=== PATIENT | female | born 1960 | race Caucasian/White ===

== ENCOUNTER 2017-01-02 15:40 | Emergency (ER) | payer OTHER ==
--- NOTE | 2017-01-02 16:02 | ED ---
General Adult HPI - General Chief complaint: Psychiatric Symptoms Stated complaint: DEPRESSION, MENTAL HEALTH Time Seen by Provider: 01/02/17 15:49 Source: patient, RN notes reviewed Mode of arrival: EMS Limitations: no limitations - History of Present Illness Initial comments: Patient is a 56-year-old female who presents emergency room today by EMS, the chief complaint of wanting to be admitted to 3 W. She states that she is been not feeling well. Admits to chronic cough congestion. Admits to chronic back pain. States no new symptoms. States just not feeling well like to be admitted to 3 W. Denies any suicidal or homicidal thoughts or plans. Denies any auditory or visual hallucinations. Denies any complaints or symptoms. Patient denies any recent fever, chills, shortness of breath, chest pain, abdominal pain, nausea or vomiting, numbness or tingling, dysuria or hematuria, constipation or diarrhea, headaches or visual changes, or any other complaints. - Related Data Home Medications Medication Instructions Recorded Confirmed Atenolol [Tenormin] 50 mg PO DAILY 05/07/16 01/02/17 Naproxen [Naproxen] 500 mg PO Q12H 05/07/16 01/02/17 diphenhydrAMINE HCL [Banophen] 50 mg PO HS 05/07/16 01/02/17 fluPHENAZine DECANOATE [Prolixin 25 mg IM Q7D 05/07/16 01/02/17 Decanoate] Albuterol Sulfate [Proair Hfa] 1 - 2 puff INHALATION RT-Q6H PRN 01/02/17 Loratadine [Claritin] 10 mg PO DAILY 01/02/17 01/02/17 Losartan [Cozaar] 50 mg PO DAILY 01/02/17 01/02/17 Allergies Allergy/AdvReac Type Severity Reaction Status Date / Time haloperidol [From Haldol] Allergy Anaphylaxis Verified 01/02/17 16:10 haloperidol lactate Allergy Anaphylaxis Verified 01/02/17 16:10 [From Haldol] iodine Allergy Anaphylaxis Verified 01/02/17 16:10 Review of Systems ROS Statement: Those systems with pertinent positive or pertinent negative responses have been documented in the HPI. ROS Other: All systems not noted in ROS Statement are negative. Past Medical History Past Medical History: Asthma, Fibromyalgia, Hypertension, Seizure Disorder, Thyroid Disorder Additional Past Medical History / Comment(s): Chronic back pain, angina, hypothyroidism, breast cancer, cervical cancer History of Any Multi-Drug Resistant Organisms: None Reported Past Surgical History: Appendectomy, Orthopedic Surgery Additional Past Surgical History / Comment(s): exp lap, liver transplant in 1987 , lumbar fusion in 1991, right breast lumpectomy Past Psychological History: Anxiety, Bipolar, Depression, Panic Disorder Smoking Status: Current every day smoker Past Alcohol Use History: Occasional Additional Past Alcohol Use History / Comment(s): Patient is a smoker of 8 cigarettes per day for the past 10-12 years. She denies any marijuana or street drug use. She states she drinks a couple beers on the weekends. Past Drug Use History: None Reported - Past Family History Father Family Medical History: Myocardial Infarction ([place]) Additional Family Medical History / Comment(s): Father in his 90s from a myocardial infarction. Mother Additional Family Medical History / Comment(s): Mother is alive at age 86 and patient denies any major medical problems. Brother(s) Additional Family Medical History / Comment(s): Patient has 5 brothers and 1 sister with no major medical problems. Patient does not have any children. General Exam - General Exam Comments Initial Comments: General: The patient is awake and alert, in no distress, and does not appear acutely ill. Eye: Pupils are equal, round and reactive to light, extra-ocular movements are intact. No nystagmus. There is normal conjunctiva bilaterally. No signs of icterus. Ears, nose, mouth and throat: There are moist mucous membranes and no oral lesions. Neck: The neck is supple, there is no tenderness or JVD. Cardiovascular: There is a regular rate and rhythm. No murmur, rub or gallop is appreciated. Respiratory: Lungs are clear to auscultation, respirations are non-labored, breath sounds are equal. No wheezes, stridor, rales, or rhonchi. Musculoskeletal: Normal ROM, no tenderness. Strength 5/5. Sensation intact. Pulses equal bilaterally 2+. Neurological: A&O x 3. CN II-XII intact, There are no obvious motor or sensory deficits. Coordination appears grossly intact. Speech is normal. Skin: Skin is warm and dry and no rashes or lesions are noted. Psychiatric: Cooperative, appropriate mood & affect, normal judgment. Limitations: no limitations Course Vital Signs 01/02/17 15:46 Temperature 97.3 F L Pulse Rate 72 Respiratory 18 Rate Blood Pressure 159/82 O2 Sat by Pulse 100 Oximetry Medical Decision Making - Medical Decision Making Patient seen here in the emergency room by mental health. Patient denies any suicidal or homicidal thoughts or plans. Patient's admits that she lost her pain medicine this morning. Patient's strep screen is negative. Patient will be discharged home. Advised follow-up family doctor. - Lab Data Lab Results 01/02/17 Range/Units 16:17 Urine Opiates Screen Not Detected (NotDetected) Ur Oxycodone Screen Not Detected (NotDetected) Urine Methadone Screen Not Detected (NotDetected) Ur Propoxyphene Screen Not Detected (NotDetected) Ur Barbiturates Screen Not Detected (NotDetected) U Tricyclic Antidepress Not Detected (NotDetected) Ur Phencyclidine Scrn Not Detected (NotDetected) Ur Amphetamines Screen Not Detected (NotDetected) U Methamphetamines Scrn Not Detected (NotDetected) U Benzodiazepines Scrn Not Detected (NotDetected) Urine Cocaine Screen Not Detected (NotDetected) U Marijuana (THC) Screen Not Detected (NotDetected) Disposition Clinical Impression: Chronic pain Disposition: HOME SELF-CARE Condition: Good Instructions: Chronic Pain (ED) Additional Instructions: Please follow-up with family doctor in the next 2 days of symptoms have not improved. Please return to emergency room if the symptoms increase or worsen or for any other concerns. Time of Disposition: 18:04
[2017-01-02 16:18] VITALS: RESP 18
[2017-01-02] MEDS ORDERED: ACETAMINOPHEN TAB 500 MG TAB PO STA (16:39)
[2017-01-02 18:09] VITALS: BP 158/64; PULSE 77; TEMP 97.9
== END 2017-01-02 18:09 | disposition home or self-care (01) ==
LOC: EC 15:40
DX: G89.29 Other chronic pain (principal); M54.9 Dorsalgia, unspecified; R05 Cough; R09.89 Other specified symptoms and signs involving the circulatory and respiratory systems; I10 Essential (primary) hypertension; M79.7 Fibromyalgia; J45.909 Unspecified asthma, uncomplicated; F31.9 Bipolar disorder, unspecified; F41.0 Panic disorder [episodic paroxysmal anxiety]; F17.210 Nicotine dependence, cigarettes, uncomplicated; Z79.1 Long term (current) use of non-steroidal anti-inflammatories (NSAID); Z79.899 Other long term (current) drug therapy; Z88.8 Allergy status to other drugs, medicaments and biological substances; Z91.041 Radiographic dye allergy status
CPT/HCPCS: 80306; 99284

== ENCOUNTER 2018-02-20 01:23 | Emergency (ER) | payer OTHER ==
--- NOTE | 2018-02-20 01:45 | ED ---
General Adult HPI - General Chief complaint: Chest Pain Stated complaint: Chest Pain Time Seen by Provider: 02/20/18 01:27 Source: patient Mode of arrival: EMS Limitations: no limitations - History of Present Illness Initial comments: This patient is a 57-year-old woman who presents to be evaluated for upper abdominal symptoms that is been going on for 7 days. The patient states that she feels gassy, particularly after eating. She states it feels like a bubbling in the upper abdomen going across the upper quadrants and also to the epigastric area. It is of bloating feeling as well. She has had some intermittent nausea. Patient denies any chest symptoms. No dyspnea, diaphoresis, palpitations or lightheadedness. Onset/Timin -: days(s) Location: abdomen Radiation: non-radiation Quality: other (Bubbling) Consistency: intermittent Improves with: none Worsens with: eating Associated Symptoms: denies other symptoms Treatments Prior to Arrival: none - Related Data Home Medications Medication Instructions Recorded Confirmed Atenolol [Tenormin] 50 mg PO DAILY 05/07/16 02/20/18 Naproxen [Naproxen] 500 mg PO Q12H 05/07/16 02/20/18 diphenhydrAMINE HCL [Banophen] 50 mg PO HS 05/07/16 02/20/18 fluPHENAZine DECANOATE [Prolixin 25 mg IM Q7D 05/07/16 02/20/18 Decanoate] Albuterol Sulfate [Proair Hfa] 1 - 2 puff INHALATION RT-Q6H PRN 01/02/17 Loratadine [Claritin] 10 mg PO DAILY 01/02/17 02/20/18 Losartan [Cozaar] 50 mg PO DAILY 01/02/17 02/20/18 Previous Rx's Medication Instructions Recorded Famotidine [Pepcid] 20 mg PO BID #14 tablet 02/20/18 Allergies Allergy/AdvReac Type Severity Reaction Status Date / Time haloperidol [From Haldol] Allergy Anaphylaxis Verified 01/02/17 16:10 haloperidol lactate Allergy Anaphylaxis Verified 01/02/17 16:10 [From Haldol] iodine Allergy Anaphylaxis Verified 01/02/17 16:10 Review of Systems ROS Statement: Those systems with pertinent positive or pertinent negative responses have been documented in the HPI. ROS Other: All systems not noted in ROS Statement are negative. Constitutional: Denies: fever, chills, weakness Respiratory: Denies: cough, dyspnea Cardiovascular: Denies: chest pain, palpitations, dyspnea on exertion, orthopnea , syncope Gastrointestinal: Reports: abdominal pain, nausea. 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 History of Any Multi-Drug Resistant Organisms: None Reported Past Surgical History: Appendectomy, Orthopedic Surgery Additional Past Surgical History / Comment(s): exp lap, liver transplant in 1987 , lumbar fusion in 1991, right breast lumpectomy Past Psychological History: Bipolar, Panic Disorder Smoking Status: Current some day smoker - Past Family History Father Family Medical History: Myocardial Infarction ([place]) Additional Family Medical History / Comment(s): Father in his 90s from a myocardial infarction. Mother Additional Family Medical History / Comment(s): Mother is alive at age 86 and patient denies any major medical problems. Brother(s) Additional Family Medical History / Comment(s): Patient has 5 brothers and 1 sister with no major medical problems. Patient does not have any children. General Exam Limitations: no limitations General appearance: alert, in no apparent distress Head exam: Present: atraumatic, normocephalic Eye exam: Present: normal appearance. Absent: scleral icterus, conjunctival injection ENT exam: Present: normal oropharynx Neck exam: Present: normal inspection, full ROM Respiratory exam: Present: normal lung sounds bilaterally. Absent: respiratory distress, wheezes, rales, rhonchi, stridor Cardiovascular Exam: Present: regular rate, normal rhythm, normal heart sounds. Absent: systolic murmur, diastolic murmur, rubs, gallop GI/Abdominal exam: Present: soft, normal bowel sounds. Absent: distended, tenderness, guarding, rebound, rigid, pulsatile mass, hernia Extremities exam: Present: normal inspection, normal capillary refill. Absent: pedal edema, calf tenderness Back exam: Present: normal inspection. Absent: CVA tenderness (R), CVA tenderness (L) Neurological exam: Present: alert Skin exam: Present: warm, dry, intact, normal color. Absent: rash Course Vital Signs 02/20/18 02/20/18 02/20/18 01:27 02:09 02:14 Temperature 97.0 F L 97.4 F L Pulse Rate 76 74 Respiratory 18 18 18 Rate Blood Pressure 113/70 112/74 O2 Sat by Pulse 100 98 Oximetry 02/20/18 06:29 Temperature 98.3 F Pulse Rate 84 Respiratory 16 Rate Blood Pressure 146/76 O2 Sat by Pulse 96 Oximetry EKG Findings - EKG Comments: EKG Findings:: Low-voltage QRS complex - EKG Results: EKG: interpreted by MACHELLE, sinus rhythm (Rate 80 bpm), normal axis, normal ST/T Medical Decision Making - Medical Decision Making Discussed stay results and further follow-up with patient including possibility of requiring endoscopy. Return parameters discussed. - Lab Data Result diagrams: 02/20/18 03:25 02/20/18 03:25 Lab Results 02/20/18 02/20/18 02/20/18 Range/Units 03:25 03:25 03:25 WBC 6.1 (3.8-10.6) k/uL RBC 3.98 (3.80-5.40) m/uL Hgb 11.6 (11.4-16.0) gm/dL Hct 33.8 L (34.0-46.0) % MCV 84.9 (80.0-100.0) fL MCH 29.1 (25.0-35.0) pg MCHC 34.2 (31.0-37.0) g/dL RDW 12.7 (11.5-15.5) % Plt Count 226 (150-450) k/uL Neutrophils % 46 % Lymphocytes % 40 % Monocytes % 10 % Eosinophils % 1 % Basophils % 1 % Neutrophils # 2.8 (1.3-7.7) k/uL Lymphocytes # 2.5 (1.0-4.8) k/uL Monocytes # 0.6 (0-1.0) k/uL Eosinophils # 0.1 (0-0.7) k/uL Basophils # 0.0 (0-0.2) k/uL Sodium 137 (137-145) mmol/L Potassium 4.4 (3.5-5.1) mmol/L Chloride 98 (98-107) mmol/L Carbon Dioxide 23 (22-30) mmol/L Anion Gap 16 mmol/L BUN 7 (7-17) mg/dL Creatinine 0.60 (0.52-1.04) mg/dL Est GFR (CKD-EPI)AfAm >90 (>60 ml/min/1.73 sqM) Est GFR (CKD-EPI)NonAf >90 (>60 ml/min/1.73 sqM) Glucose 94 (74-99) mg/dL Calcium 9.8 (8.4-10.2) mg/dL Total Bilirubin 0.2 (0.2-1.3) mg/dL AST 16 (14-36) U/L ALT 22 (9-52) U/L Alkaline Phosphatase 76 (38-126) U/L Troponin I <0.012 (0.000-0.034) ng/mL Total Protein 6.7 (6.3-8.2) g/dL Albumin 4.3 (3.5-5.0) g/dL Disposition Clinical Impression: Gastritis Disposition: HOME SELF-CARE Condition: Good Instructions: Gastritis (ED) Prescriptions: Famotidine [Pepcid] 20 mg PO BID #14 tablet Is patient prescribed a controlled substance at d/c from ED?: No Referrals: Ilda Naranjo MD [Primary Care Provider] - 1-2 days
--- NOTE | 2018-02-20 02:42 | XR ---
EXAMINATION TYPE: XR chest 1V portable DATE OF EXAM: 02/20/2018 COMPARISON: 05/07/2016 HISTORY: Chest pain TECHNIQUE: Single frontal view of the chest is obtained. FINDINGS: Single view of the chest portable technique shows no heart failure nor confluent pneumonic infiltrate. There are small calcified granulomata in the lower lobes. There are chest leads. Costoph renic angles are clear. There is spurring in the thoracic spine. Heart size is normal. IMPRESSION: No active cardiopulmonary disease. No change.
[2018-02-20 03:44] LABS: Basophils % (A) 1 %; Eosinophils # (A) 0.1 k/uL (0-0.7); Eosinophils % (A) 1 %; HCT 33.8 % (34.0-46.0); HGB 11.6 gm/dL (11.4-16.0); Lymphocytes # (A) 2.5 k/uL (1.0-4.8); Lymphocytes % (A) 40 %; MCH 29.1 pg (25.0-35.0); MCHC 34.2 g/dL (31.0-37.0); MCV 84.9 fL (80.0-100.0); Monocytes # (A) 0.6 k/uL (0-1.0); Monocytes % (A) 10 %; Neutrophils # (A) 2.8 k/uL (1.3-7.7); Neutrophils % (A) 46 %; Platelet Count 226 k/uL (150-450); RBC 3.98 m/uL (3.80-5.40); RDW 12.7 % (11.5-15.5); WBC 6.1 k/uL (3.8-10.6)
[2018-02-20 03:58] LABS: ALT 22 U/L (9-52); AST 16 U/L (14-36); Albumin 4.3 g/dL (3.5-5.0); Alkaline Phosphatase 76 U/L (38-126); Anion Gap 16 mmol/L; Blood Urea Nitrogen 7 mg/dL (7-17); Calcium 9.8 mg/dL (8.4-10.2); Carbon Dioxide 23 mmol/L (22-30); Chloride 98 mmol/L (98-107); Glucose 94 mg/dL (74-99); Potassium 4.4 mmol/L (3.5-5.1); Sodium 137 mmol/L (137-145); Total Bilirubin 0.2 mg/dL (0.2-1.3); Total Protein 6.7 g/dL (6.3-8.2)
[2018-02-20 06:31] VITALS: BP 146/76; PULSE 84; RESP 16; TEMP 98.3
== END 2018-02-20 06:31 | disposition home or self-care (01) ==
LOC: EC 01:23
DX: K29.70 Gastritis, unspecified, without bleeding (principal); R07.9 Chest pain, unspecified; M79.7 Fibromyalgia; I10 Essential (primary) hypertension; F17.200 Nicotine dependence, unspecified, uncomplicated; Z85.3 Personal history of malignant neoplasm of breast; Z85.41 Personal history of malignant neoplasm of cervix uteri; Z94.4 Liver transplant status; Z79.1 Long term (current) use of non-steroidal anti-inflammatories (NSAID); Z79.899 Other long term (current) drug therapy; Z88.8 Allergy status to other drugs, medicaments and biological substances; Z91.048 Other nonmedicinal substance allergy status
CPT/HCPCS: 36415; 71045; 80053; 84484; 85025; 93005; 99285

== ENCOUNTER → 2018-02-28 | Outpatient (CLI) | payer OTHER ==
[2018-02-28 16:48] LABS: ALT 28 U/L (9-52); AST 27 U/L (14-36); Albumin 4.5 g/dL (3.5-5.0); Alkaline Phosphatase 82 U/L (38-126); Anion Gap 14 mmol/L; Blood Urea Nitrogen 5 mg/dL (7-17); Calcium 10.3 mg/dL (8.4-10.2); Carbon Dioxide 24 mmol/L (22-30); Chloride 94 mmol/L (98-107); Glucose 91 mg/dL (74-99); Potassium 4.3 mmol/L (3.5-5.1); Sodium 132 mmol/L (137-145); Total Bilirubin 0.3 mg/dL (0.2-1.3); Total Protein 6.9 g/dL (6.3-8.2)
== END ==
LOC: LABWHC1 16:10
PROVIDERS: ATTEND Physician Assistant Medical
DX: E87.1 Hypo-osmolality and hyponatremia (principal)
CPT/HCPCS: 36415; 80053

== ENCOUNTER 2018-04-22 02:24 | Emergency (ER) | payer OTHER ==
[2018-04-22] MEDS ORDERED: SODIUM CHLORIDE 0.9% 1,000 ML IV STA (02:40)
[2018-04-22] MEDS ORDERED: SODIUM CHLORIDE 0.9% 500 ML IV STA (02:40)
--- NOTE | 2018-04-22 02:41 | ED ---
General Adult HPI - General Chief complaint: Fall Stated complaint: Syncope Time Seen by Provider: 04/22/18 02:39 Source: patient, EMS, RN notes reviewed, old records reviewed Mode of arrival: EMS Limitations: physical limitation - History of Present Illness Initial comments: This is a 57-year-old female the ER for evaluation. Patient resents ER today for evaluation of syncope versus near syncope, weakness and fall. Patient does complain of chest pain and abdominal pain. Neck pain and headache. Patient has medical history of mental health, surgical history as well as high blood pressure. Patient denies any recent trauma prior. No recent change in medications. Currently denying any shortness of breath. No prior history of syncopal event - Related Data Home Medications Medication Instructions Recorded Confirmed Loratadine [Claritin] 10 mg PO DAILY 01/02/17 04/22/18 Acetaminophen Tab [Tylenol Tab] 1,000 mg PO TID 04/22/18 04/22/18 Cholecalciferol [Vitamin D3] 5,000 unit PO DAILY 04/22/18 04/22/18 Ferrous Sulfate [Feosol] 325 mg PO DAILY 04/22/18 04/22/18 Fluticasone Nasal Delevan [Flonase 2 spr EA NOSTRIL DAILY 04/22/18 04/22/18 Nasal Delevan] Gabapentin [Neurontin] 400 mg PO TID 04/22/18 04/22/18 Ibuprofen [Motrin] 600 mg PO BID 04/22/18 04/22/18 Losartan Potassium [Cozaar] 100 mg PO DAILY 04/22/18 04/22/18 Magnesium Oxide [Mag-Ox] 400 mg PO DAILY 04/22/18 04/22/18 Metoprolol Tartrate [Lopressor] 50 mg PO BID 04/22/18 04/22/18 cloZAPine [Clozaril] 100 mg PO HS 04/22/18 04/22/18 fluPHENAZine DECANOATE [Prolixin 50 mg IM [id number] 04/22/18 04/22/18 Decanoate] fluvoxaMINE [Luvox] 50 mg PO HS 04/22/18 04/22/18 hydrOXYzine PAMOATE [Vistaril] 50 mg PO TID 04/22/18 04/22/18 traMADol HCL [Ultram] 50 mg PO BID PRN 04/22/18 04/22/18 Allergies Allergy/AdvReac Type Severity Reaction Status Date / Time haloperidol [From Haldol] Allergy Anaphylaxis Verified 04/22/18 08:43 haloperidol lactate Allergy Anaphylaxis Verified 04/22/18 08:43 [From Haldol] iodine Allergy Anaphylaxis Verified 04/22/18 08:43 Review of Systems ROS Statement: Those systems with pertinent positive or pertinent negative responses have been documented in the HPI. ROS Other: All systems not noted in ROS Statement are negative. 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 History of Any Multi-Drug Resistant Organisms: None Reported Past Surgical History: Appendectomy, Orthopedic Surgery Additional Past Surgical History / Comment(s): exp lap, liver transplant in 1987 , lumbar fusion in 1991, right breast lumpectomy Past Psychological History: Anxiety, Bipolar, Depression, Panic Disorder Smoking Status: Current every day smoker Past Alcohol Use History: Rare Past Drug Use History: None Reported - Past Family History Father Family Medical History: Myocardial Infarction ([place]) Additional Family Medical History / Comment(s): Father in his 90s from a myocardial infarction. Mother Additional Family Medical History / Comment(s): Mother is alive at age 86 and patient denies any major medical problems. Brother(s) Additional Family Medical History / Comment(s): Patient has 5 brothers and 1 sister with no major medical problems. Patient does not have any children. General Exam Limitations: physical limitation General appearance: alert, in no apparent distress Head exam: Present: atraumatic, normocephalic, normal inspection Eye exam: Present: normal appearance, PERRL, EOMI. Absent: scleral icterus, conjunctival injection, periorbital swelling ENT exam: Present: normal exam, mucous membranes moist Neck exam: Present: normal inspection. Absent: tenderness, meningismus, lymphadenopathy Respiratory exam: Present: normal lung sounds bilaterally. Absent: respiratory distress, wheezes, rales, rhonchi, stridor Cardiovascular Exam: Present: regular rate, normal rhythm, normal heart sounds. Absent: systolic murmur, diastolic murmur, rubs, gallop, clicks GI/Abdominal exam: Present: soft, normal bowel sounds. Absent: distended, tenderness, guarding, rebound, rigid Extremities exam: Present: normal inspection, full ROM, normal capillary refill. Absent: tenderness, pedal edema, joint swelling, calf tenderness Back exam: Present: normal inspection Neurological exam: Present: alert, oriented X3, CN II-XII intact Psychiatric exam: Present: normal affect, normal mood Skin exam: Present: warm, dry, intact, normal color. Absent: rash Course Vital Signs 04/22/18 04/22/18 04/22/18 02:27 03:33 04:46 Temperature 96.7 F L Pulse Rate 93 88 88 Respiratory 19 17 17 Rate Blood Pressure 128/88 127/89 125/86 O2 Sat by Pulse 100 100 98 Oximetry 04/22/18 04/22/18 06:28 07:14 Temperature 97.7 F Pulse Rate 93 91 Respiratory 18 20 Rate Blood Pressure 123/87 123/87 O2 Sat by Pulse 100 97 Oximetry - Reevaluation(s) Reevaluation #1: 04/22/18 06:08 Medical record is reviewed Reevaluation #2: 04/22/18 06:08 Patient continuing continuing after pain medication EKG Findings - EKG Comments: EKG Findings:: EKG shows normal sinus rhythm rate of 92, MT 180, QRS 76, QTc 460 Medical Decision Making - Medical Decision Making 57 female the ER for evaluation, positive fall, near syncopal event. No significant cause found. Patient can be discharged home - Lab Data Result diagrams: 04/22/18 04:16 04/22/18 04:16 Lab Results 04/22/18 04/22/18 04/22/18 Range/Units 04:16 04:16 04:16 WBC 6.1 (3.8-10.6) k/uL RBC 3.93 (3.80-5.40) m/uL Hgb 11.6 (11.4-16.0) gm/dL Hct 35.1 (34.0-46.0) % MCV 89.4 (80.0-100.0) fL MCH 29.4 (25.0-35.0) pg MCHC 32.9 (31.0-37.0) g/dL RDW 12.4 (11.5-15.5) % Plt Count 183 (150-450) k/uL Neutrophils % 56 % Lymphocytes % 31 % Monocytes % 9 % Eosinophils % 0 % Basophils % 1 % Neutrophils # 3.4 (1.3-7.7) k/uL Lymphocytes # 1.9 (1.0-4.8) k/uL Monocytes # 0.6 (0-1.0) k/uL Eosinophils # 0.0 (0-0.7) k/uL Basophils # 0.0 (0-0.2) k/uL PT 10.0 (9.0-12.0) sec INR 1.0 (<1.2) APTT 23.6 (22.0-30.0) sec Sodium 131 L (137-145) mmol/L Potassium 3.8 (3.5-5.1) mmol/L Chloride 96 L (98-107) mmol/L Carbon Dioxide 21 L (22-30) mmol/L Anion Gap 14 mmol/L BUN 3 L (7-17) mg/dL Creatinine 0.50 L (0.52-1.04) mg/dL Est GFR (CKD-EPI)AfAm >90 (>60 ml/min/1.73 sqM) Est GFR (CKD-EPI)NonAf >90 (>60 ml/min/1.73 sqM) Glucose 89 (74-99) mg/dL Calcium 9.2 (8.4-10.2) mg/dL Phosphorus 3.3 (2.5-4.5) mg/dL Magnesium 1.5 L (1.6-2.3) mg/dL Total Bilirubin <0.1 L (0.2-1.3) mg/dL AST 17 (14-36) U/L ALT 35 (9-52) U/L Alkaline Phosphatase 76 (38-126) U/L Total Creatine Kinase (30-135) U/L CK-MB (CK-2) (0.0-2.4) ng/mL CK-MB (CK-2) Rel Index Troponin I (0.000-0.034) ng/mL Total Protein 6.6 (6.3-8.2) g/dL Albumin 4.3 (3.5-5.0) g/dL TSH 2.760 (0.465-4.680) mIU/L 04/22/18 Range/Units 04:16 WBC (3.8-10.6) k/uL RBC (3.80-5.40) m/uL Hgb (11.4-16.0) gm/dL Hct (34.0-46.0) % MCV (80.0-100.0) fL MCH (25.0-35.0) pg MCHC (31.0-37.0) g/dL RDW (11.5-15.5) % Plt Count (150-450) k/uL Neutrophils % % Lymphocytes % % Monocytes % % Eosinophils % % Basophils % % Neutrophils # (1.3-7.7) k/uL Lymphocytes # (1.0-4.8) k/uL Monocytes # (0-1.0) k/uL Eosinophils # (0-0.7) k/uL Basophils # (0-0.2) k/uL PT (9.0-12.0) sec INR (<1.2) APTT (22.0-30.0) sec Sodium (137-145) mmol/L Potassium (3.5-5.1) mmol/L Chloride (98-107) mmol/L Carbon Dioxide (22-30) mmol/L Anion Gap mmol/L BUN (7-17) mg/dL Creatinine (0.52-1.04) mg/dL Est GFR (CKD-EPI)AfAm (>60 ml/min/1.73 sqM) Est GFR (CKD-EPI)NonAf (>60 ml/min/1.73 sqM) Glucose (74-99) mg/dL Calcium (8.4-10.2) mg/dL Phosphorus (2.5-4.5) mg/dL Magnesium (1.6-2.3) mg/dL Total Bilirubin (0.2-1.3) mg/dL AST (14-36) U/L ALT (9-52) U/L Alkaline Phosphatase (38-126) U/L Total Creatine Kinase 236 H (30-135) U/L CK-MB (CK-2) 1.6 (0.0-2.4) ng/mL CK-MB (CK-2) Rel Index 0.7 Troponin I <0.012 (0.000-0.034) ng/mL Total Protein (6.3-8.2) g/dL Albumin (3.5-5.0) g/dL TSH (0.465-4.680) mIU/L - Radiology Data Radiology results: report reviewed (CT brain C-spine is negative, chest x-ray pelvis x-rays negative), image reviewed Disposition Clinical Impression: Pre-syncope, Syncope, Fall Disposition: HOME SELF-CARE Condition: Good Instructions: Fall Prevention for Older Adults (ED) Is patient prescribed a controlled substance at d/c from ED?: No Referrals: Nixon Deluan MD [Primary Care Provider] - 1-2 days
--- NOTE | 2018-04-22 04:03 | XR ---
EXAMINATION TYPE: XR chest 1V portable DATE OF EXAM: 04/22/2018 COMPARISON: 02/20/2018 HISTORY: Weakness TECHNIQUE: Single frontal view of the chest is obtained. FINDINGS: Heart and mediastinum are normal. Lungs are clear. Diaphragm is normal. Bony thorax is int act. There are chest leads. There is spurring in the thoracic spine. IMPRESSION: No active cardiopulmonary disease. No change.
--- NOTE | 2018-04-22 04:05 | XR ---
EXAMINATION TYPE: XR pelvis AP view DATE OF EXAM: 04/22/2018 COMPARISON: NONE HISTORY: Weakness pain TECHNIQUE: 2 views FINDINGS: There is no evidence of a fracture. Pelvic ring is intact. Proximal femurs and hip joints a re intact. Sacroiliac joints are normal. IMPRESSION: Normal pelvis.
--- NOTE | 2018-04-22 04:14 | CT ---
EXAMINATION TYPE: CT brain bessie cummins DATE OF EXAM: 04/22/2018 COMPARISON: NONE HISTORY: Headache. Neck pain. CT DLP: mGycm Automated exposure control for dose reduction was used. TECHNIQUE: CT scan of the head and cervical spine are performed without contrast. FINDINGS: Ventricles of normal size. There is no mass effect nor midline shift. There is no sign of intracranial hemorrhage. The calvarium appears intact. There is 5 mm anterior subluxation of C3 in relation to C4. There is narrowing of C3-4 C5-6 and C6-7 disc spaces. There is spurring of the endplates. There is moderate spurring posteriorly at C5-6 with resultant bony spinal stenosis. The facet joints are intact. The skull base is intact. IMPRESSION: Negative CT scan of the brain. Spondylotic changes in the cervical spine. Degenerative first-degree C3-4 spondylolisthesis. Moderate bony spinal stenosis at C5-6. No fracture.
[2018-04-22] MEDS ORDERED: ACETAMINOPHEN TAB 325 MG TAB PO STA (04:23)
[2018-04-22 04:24] LABS: Basophils % (A) 1 %; Eosinophils % (A) 0 %; HCT 35.1 % (34.0-46.0); HGB 11.6 gm/dL (11.4-16.0); Lymphocytes # (A) 1.9 k/uL (1.0-4.8); Lymphocytes % (A) 31 %; MCH 29.4 pg (25.0-35.0); MCHC 32.9 g/dL (31.0-37.0); MCV 89.4 fL (80.0-100.0); Mean Platelet Volume 6.6; Monocytes # (A) 0.6 k/uL (0-1.0); Monocytes % (A) 9 %; Neutrophils # (A) 3.4 k/uL (1.3-7.7); Neutrophils % (A) 56 %; Platelet Count 183 k/uL (150-450); RBC 3.93 m/uL (3.80-5.40); RDW 12.4 % (11.5-15.5); WBC 6.1 k/uL (3.8-10.6)
[2018-04-22 04:33] LABS: ALT 35 U/L (9-52); AST 17 U/L (14-36); Albumin 4.3 g/dL (3.5-5.0); Alkaline Phosphatase 76 U/L (38-126); Anion Gap 14 mmol/L; Blood Urea Nitrogen 3 mg/dL (7-17); Calcium 9.2 mg/dL (8.4-10.2); Carbon Dioxide 21 mmol/L (22-30); Chloride 96 mmol/L (98-107); Glucose 89 mg/dL (74-99); Magnesium 1.5 mg/dL (1.6-2.3); Partial Thromboplastin Time 23.6 sec (22.0-30.0); Phosphorus 3.3 mg/dL (2.5-4.5); Potassium 3.8 mmol/L (3.5-5.1); Sodium 131 mmol/L (137-145); Total Bilirubin <0.1 mg/dL (0.2-1.3); Total Protein 6.6 g/dL (6.3-8.2)
[2018-04-22 04:43] LABS: Creatine Kinase 236 U/L (30-135)
[2018-04-22 04:56] LABS: Creatine Kinase MB 1.6 ng/mL (0.0-2.4); Troponin I <0.012 ng/mL (0.000-0.034)
[2018-04-22] MEDS ORDERED: methylPREDNISolone SOD SUCCI 125 MG/2 ML VIAL IV STA (06:27)
[2018-04-22] MEDS ORDERED: FAMOTIDINE 20 MG/2 ML VIAL IV STA (06:27)
[2018-04-22] MEDS ORDERED: diphenhydrAMINE 50 MG/ML 1 ML VIAL IVP STA (06:27)
[2018-04-22 06:35] VITALS: BP 123/87
[2018-04-22] MEDS ORDERED: MORPHINE SULFATE 2 MG/ML SYRINGE IM STA (07:03)
[2018-04-22 07:15] VITALS: PULSE 91; RESP 20; TEMP 97.7
== END 2018-04-22 09:23 | disposition home or self-care (01) ==
LOC: EC 02:24
DX: R55 Syncope and collapse (principal); R07.9 Chest pain, unspecified; R10.9 Unspecified abdominal pain; R51 Headache; M54.2 Cervicalgia; J45.909 Unspecified asthma, uncomplicated; M79.7 Fibromyalgia; I10 Essential (primary) hypertension; G40.909 Epilepsy, unspecified, not intractable, without status epilepticus; F31.9 Bipolar disorder, unspecified; F41.0 Panic disorder [episodic paroxysmal anxiety]; F17.200 Nicotine dependence, unspecified, uncomplicated; Z85.3 Personal history of malignant neoplasm of breast; Z85.41 Personal history of malignant neoplasm of cervix uteri; Z79.1 Long term (current) use of non-steroidal anti-inflammatories (NSAID); Z79.899 Other long term (current) drug therapy; Z88.8 Allergy status to other drugs, medicaments and biological substances; Z94.4 Liver transplant status; W18.09XA Striking against other object with subsequent fall, initial encounter; Y92.009 Unspecified place in unspecified non-institutional (private) residence as the place of occurrence of the external cause
CPT/HCPCS: 36415; 93005; 80053; 82550; 82553; 83735; 84100; 84443; 84484; 85025; 85610; 85730; 72170; 71045; 72125; 70450; 99285; 96372; J2270

== ENCOUNTER 2018-08-12 11:40 | Inpatient (IN) | payer OTHER ==
[2018-08-12] MEDS ORDERED: SODIUM CHLORIDE 0.9% 500 ML 500 ML IV STA (12:05)
[2018-08-12] MEDS ORDERED: MORPHINE SULFATE 2 MG/ML SYRINGE IVP ONE (12:15)
--- NOTE | 2018-08-12 12:28 | ED ---
Fall HPI - General Chief Complaint: Fall Stated Complaint: fall Time Seen by Provider: 08/12/18 11:58 Source: patient, EMS, RN notes reviewed Mode of arrival: EMS Limitations: no limitations - History of Present Illness Initial Comments: This a 57 show female presents emergency Department chief complaint of fall, left hip pain. Patient states she's had 2 syncopal episodes in last week. Patient states she does not believe she struck her head though complains of mild headache. Patient denies any chest pain or shortness of breath. Patient states that her main complaint is left hip pain states that she cannot bear weight. Patient denies nausea vomiting diarrhea constipation. Patient does see Dr. Harris for back pain. - Related Data Home Medications Medication Instructions Recorded Confirmed Loratadine [Claritin] 10 mg PO DAILY 01/02/17 08/12/18 Acetaminophen Tab [Tylenol Tab] 500 mg PO TID 04/22/18 08/12/18 Ferrous Sulfate [Feosol] 325 mg PO MOWEFR 04/22/18 08/12/18 Fluticasone Nasal [place] [Flonase 1 spr EA NOSTRIL DAILY 04/22/18 08/12/18 Nasal [place]] Ibuprofen [Motrin] 600 mg PO BID 04/22/18 08/12/18 Losartan Potassium [Cozaar] 100 mg PO DAILY 04/22/18 08/12/18 Magnesium Oxide [Mag-Ox] 400 mg PO DAILY 04/22/18 08/12/18 Metoprolol Tartrate [Lopressor] 50 mg PO BID 04/22/18 08/12/18 cloZAPine [Clozaril] 100 mg PO HS 04/22/18 08/12/18 fluPHENAZine DECANOATE [Prolixin 50 mg IM [id number] 04/22/18 08/12/18 Decanoate] fluvoxaMINE [Luvox] 100 mg PO DAILY 04/22/18 08/12/18 hydrOXYzine PAMOATE [Vistaril] 50 mg PO TID 04/22/18 08/12/18 traMADol HCL [Ultram] 50 mg PO BID PRN 04/22/18 08/12/18 Albuterol Inhaler [Ventolin Hfa 2 puff INHALATION RT-Q4H PRN 08/12/18 08/12/18 Inhaler] Cholecalciferol [Vitamin D3] 5,000 unit PO DAILY 08/12/18 08/12/18 Sodium Chloride Tab 1 gm PO BID 08/12/18 08/12/18 Allergies Allergy/AdvReac Type Severity Reaction Status Date / Time haloperidol [From Haldol] Allergy Anaphylaxis Verified 08/12/18 12:46 haloperidol lactate Allergy Anaphylaxis Verified 08/12/18 12:46 [From Haldol] iodine Allergy Anaphylaxis Verified 08/12/18 12:46 Review of Systems ROS Statement: Those systems with pertinent positive or pertinent negative responses have been documented in the HPI. ROS Other: All systems not noted in ROS Statement are negative. 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 History of Any Multi-Drug Resistant Organisms: None Reported Past Surgical History: Appendectomy, Orthopedic Surgery Additional Past Surgical History / Comment(s): exp lap, liver transplant in 1987 , lumbar fusion in 1991, right breast lumpectomy Past Psychological History: Anxiety, Bipolar, Depression, Panic Disorder Smoking Status: Current every day smoker Past Alcohol Use History: Rare Past Drug Use History: None Reported - Past Family History Father Family Medical History: Myocardial Infarction ([place]) Additional Family Medical History / Comment(s): Father in his 90s from a myocardial infarction. Mother Additional Family Medical History / Comment(s): Mother is alive at age 86 and patient denies any major medical problems. Brother(s) Additional Family Medical History / Comment(s): Patient has 5 brothers and 1 sister with no major medical problems. Patient does not have any children. General Exam General appearance: alert, in no apparent distress Head exam: Present: atraumatic, normocephalic, normal inspection Eye exam: Present: normal appearance, PERRL, EOMI. Absent: scleral icterus, conjunctival injection, periorbital swelling ENT exam: Present: normal exam, normal oropharynx, mucous membranes moist, TM's normal bilaterally, normal external ear exam Neck exam: Present: normal inspection, full ROM. Absent: tenderness, meningismus, lymphadenopathy Respiratory exam: Present: normal lung sounds bilaterally. Absent: respiratory distress, wheezes, rales, rhonchi, stridor Cardiovascular Exam: Present: regular rate, normal rhythm, normal heart sounds. Absent: systolic murmur, diastolic murmur, rubs, gallop, clicks GI/Abdominal exam: Present: soft, normal bowel sounds. Absent: distended, tenderness, guarding, rebound, rigid Extremities exam: Present: other (Tenderness to left hip diffusely pain with range of motion neurovascular intact lower extremities) Neurological exam: Present: alert, oriented X3, CN II-XII intact, reflexes normal. Absent: motor sensory deficit Skin exam: Present: warm, dry, intact, normal color. Absent: rash Course Vital Signs 08/12/18 11:48 Temperature 97.1 F L Pulse Rate 68 Respiratory 16 Rate Blood Pressure 114/65 O2 Sat by Pulse 97 Oximetry Medical Decision Making - Medical Decision Making 57-year-old female presented emergency from for fall, syncopal episode left hip pain. Patient has a left hip fracture. We did discuss the case with Dr. Shannon for orthopedics associate as she is a known patient. They recommended patient be admitted to medicine with consult to orthopedics secondary to syncopal episode. Patient be admitted to but has not. - Lab Data Result diagrams: 08/12/18 12:50 08/12/18 12:50 Lab Results 08/12/18 08/12/18 08/12/18 Range/Units 12:50 12:50 12:50 WBC 8.3 (3.8-10.6) k/uL RBC 3.67 L (3.80-5.40) m/uL Hgb 10.2 L (11.4-16.0) gm/dL Hct 31.6 L (34.0-46.0) % MCV 86.3 (80.0-100.0) fL MCH 27.9 (25.0-35.0) pg MCHC 32.3 (31.0-37.0) g/dL RDW 12.5 (11.5-15.5) % Plt Count 285 (150-450) k/uL Neutrophils % 79 % Lymphocytes % 10 % Monocytes % 7 % Eosinophils % 2 % Basophils % 0 % Neutrophils # 6.6 (1.3-7.7) k/uL Lymphocytes # 0.9 L (1.0-4.8) k/uL Monocytes # 0.6 (0-1.0) k/uL Eosinophils # 0.2 (0-0.7) k/uL Basophils # 0.0 (0-0.2) k/uL PT (9.0-12.0) sec INR (<1.2) APTT (22.0-30.0) sec Sodium 142 (137-145) mmol/L Potassium 4.3 (3.5-5.1) mmol/L Chloride 108 H (98-107) mmol/L Carbon Dioxide 21 L (22-30) mmol/L Anion Gap 13 mmol/L BUN 13 (7-17) mg/dL Creatinine 0.68 (0.52-1.04) mg/dL Est GFR (CKD-EPI)AfAm >90 (>60 ml/min/1.73 sqM) Est GFR (CKD-EPI)NonAf >90 (>60 ml/min/1.73 sqM) Glucose 99 (74-99) mg/dL Calcium 9.8 (8.4-10.2) mg/dL Magnesium 1.8 (1.6-2.3) mg/dL Total Bilirubin 0.4 (0.2-1.3) mg/dL AST 13 L (14-36) U/L ALT 25 (9-52) U/L Alkaline Phosphatase 89 (38-126) U/L Total Creatine Kinase 60 (30-135) U/L CK-MB (CK-2) 0.3 (0.0-2.4) ng/mL CK-MB (CK-2) Rel Index 0.5 Troponin I <0.012 (0.000-0.034) ng/mL Total Protein 6.6 (6.3-8.2) g/dL Albumin 3.9 (3.5-5.0) g/dL 08/12/18 Range/Units 12:50 WBC (3.8-10.6) k/uL RBC (3.80-5.40) m/uL Hgb (11.4-16.0) gm/dL Hct (34.0-46.0) % MCV (80.0-100.0) fL MCH (25.0-35.0) pg MCHC (31.0-37.0) g/dL RDW (11.5-15.5) % Plt Count (150-450) k/uL Neutrophils % % Lymphocytes % % Monocytes % % Eosinophils % % Basophils % % Neutrophils # (1.3-7.7) k/uL Lymphocytes # (1.0-4.8) k/uL Monocytes # (0-1.0) k/uL Eosinophils # (0-0.7) k/uL Basophils # (0-0.2) k/uL PT 9.7 (9.0-12.0) sec INR 1.0 (<1.2) APTT 20.9 L (22.0-30.0) sec Sodium (137-145) mmol/L Potassium (3.5-5.1) mmol/L Chloride (98-107) mmol/L Carbon Dioxide (22-30) mmol/L Anion Gap mmol/L BUN (7-17) mg/dL Creatinine (0.52-1.04) mg/dL Est GFR (CKD-EPI)AfAm (>60 ml/min/1.73 sqM) Est GFR (CKD-EPI)NonAf (>60 ml/min/1.73 sqM) Glucose (74-99) mg/dL Calcium (8.4-10.2) mg/dL Magnesium (1.6-2.3) mg/dL Total Bilirubin (0.2-1.3) mg/dL AST (14-36) U/L ALT (9-52) U/L Alkaline Phosphatase (38-126) U/L Total Creatine Kinase (30-135) U/L CK-MB (CK-2) (0.0-2.4) ng/mL CK-MB (CK-2) Rel Index Troponin I (0.000-0.034) ng/mL Total Protein (6.3-8.2) g/dL Albumin (3.5-5.0) g/dL Disposition Clinical Impression: Syncope, Fall, Closed left hip fracture Disposition: ADMITTED IP TO THIS HOSP Condition: Fair Referrals: Ulysses Mauricio MD [Primary Care Provider] - 1-2 days
[2018-08-12 13:08] LABS: Basophils % (A) 0 %; Eosinophils # (A) 0.2 k/uL (0-0.7); Eosinophils % (A) 2 %; HCT 31.6 % (34.0-46.0); HGB 10.2 gm/dL (11.4-16.0); Lymphocytes # (A) 0.9 k/uL (1.0-4.8); Lymphocytes % (A) 10 %; MCH 27.9 pg (25.0-35.0); MCHC 32.3 g/dL (31.0-37.0); MCV 86.3 fL (80.0-100.0); Mean Platelet Volume 6.8; Monocytes # (A) 0.6 k/uL (0-1.0); Monocytes % (A) 7 %; Neutrophils # (A) 6.6 k/uL (1.3-7.7); Neutrophils % (A) 79 %; Platelet Count 285 k/uL (150-450); RBC 3.67 m/uL (3.80-5.40); RDW 12.5 % (11.5-15.5); WBC 8.3 k/uL (3.8-10.6)
[2018-08-12 13:18] LABS: ALT 25 U/L (9-52); AST 13 U/L (14-36); Albumin 3.9 g/dL (3.5-5.0); Alkaline Phosphatase 89 U/L (38-126); Anion Gap 13 mmol/L; Blood Urea Nitrogen 13 mg/dL (7-17); Calcium 9.8 mg/dL (8.4-10.2); Carbon Dioxide 21 mmol/L (22-30); Chloride 108 mmol/L (98-107); Glucose 99 mg/dL (74-99); Magnesium 1.8 mg/dL (1.6-2.3); Potassium 4.3 mmol/L (3.5-5.1); Sodium 142 mmol/L (137-145); Total Bilirubin 0.4 mg/dL (0.2-1.3); Total Protein 6.6 g/dL (6.3-8.2)
[2018-08-12 13:32] LABS: Prothrombin Time 9.7 sec (9.0-12.0)
[2018-08-12 13:33] LABS: Creatine Kinase 60 U/L (30-135); Partial Thromboplastin Time 20.9 sec (22.0-30.0)
--- NOTE | 2018-08-12 13:41 | XR ---
EXAMINATION TYPE: XR chest 1V DATE OF EXAM: 08/12/2018 COMPARISON: 04/22/2018 INDICATION: Syncope TECHNIQUE: Single frontal view of the chest is obtained. FINDINGS: The heart size is normal. The pulmonary vasculature is normal. The lungs are clear. IMPRESSION: 1. No acute pulmonary process.
[2018-08-12 13:46] LABS: Creatine Kinase MB 0.3 ng/mL (0.0-2.4); Troponin I <0.012 ng/mL (0.000-0.034)
--- NOTE | 2018-08-12 13:58 | XR ---
EXAMINATION TYPE: XR Hip LT and AP Pelvis DATE OF EXAM: 08/12/2018 COMPARISON: Pelvic x-ray April 22, 2018 HISTORY: Fall injury with pain TECHNIQUE: A single AP view of the pelvis is obtained. Two views of the left hip are obtained. FINDINGS: There is new acute impacted basicervical fracture of left proximal femur. No hip joint di slocation is present. There is symmetric mild to moderate axial joint space loss in both hips. Remain stephen of pelvis shows no additional acute fracture or dislocation. Pubic symphysis is intact. There is partial visualization of surgical change in the lumbar spine. There is marked spurring and disc space narrowing in the lower lumbar spine with extensive sclerosis redemonstrated. IMPRESSION: There is an acute impacted basicervical fracture of the left proximal femur. (Initial encounter close type post traumatic fracture)
--- NOTE | 2018-08-12 14:23 | CT ---
EXAMINATION TYPE: CT brain cspine wo con DATE OF EXAM: 08/12/2018 COMPARISON: CT cervical spine April 22, 2018. HISTORY: Syncope. Headache and neck pain after fall injury. CT DLP: 1660.2 mGycm. Automated Exposure Control for Dose Reduction was Utilized. TECHNIQUE: CT scan of the head and cervical spine are performed without contrast. FINDINGS: There is no acute intracranial hemorrhage, mass effect, or midline shift identified. The ventricles and sulci are within normal limits in size. The globes are intact and the visualized sin uses are clear. The calvarium is intact. Cervical spine is visualized in its entirety from C1 through upper thoracic levels and redemonstrates reversal of normal cervical curvature without evidence of acute fracture or dislocation. Prevertebr al soft tissue appears within normal limits. The C1-C2 articulation is within normal limits on the c oronal images. Vertebral body heights are maintained. There is moderate disc space narrowing and spur ring C3-C4 level. There is moderate to severe spurring and disc space narrowing C5-C6 and C6-C7 level s. Posterior spur disc complexes effacing anterior thecal sac at C5-C6 and to lesser degree at C6-C7 level on sagittal images. Slight grade 1 anterolisthesis of C3 on C4 is redemonstrated. Review of axial images shows multilevel uncovertebral facet degenerative changes causing bilateral ne ural foraminal narrowing redemonstrated bilaterally C3-C4 and C5-C6 levels with marginal spurring cau sing bilateral neural foraminal narrowing at C6-C7 level. There is mild to moderate biapical pleural scarring redemonstrated. IMPRESSION: 1. There is no acute fracture or dislocation evident in the cervical spine. Loss of normal cervical c urvature with multilevel degenerative changes redemonstrated. 2. No acute intracranial hemorrhage or midline shift is seen.
[2018-08-12] MEDS ORDERED: NALOXONE 0.4 MG/ML 1 ML VIAL IV PRN (14:58)
[2018-08-12] MEDS ORDERED: HYDROcodone/APAP 5-325MG 1 EACH TAB PO PRN (14:58)
[2018-08-12] MEDS: MORPHINE SULFATE 4 MG/ML SYRINGE IV PRN ×3 (15:10→21:43)
[2018-08-12 16:05] LABS: Appearance,Urine Clear (Clear); Bilirubin,Urine Negative (Negative); Blood,Urine Negative (Negative); Color,Urine Yellow; Glucose,Urine (UA) Negative (Negative); Ketones,Urine Negative (Negative); Leukocyte Esterase,Urine Negative (Negative); Nitrite,Urine Negative (Negative); PH, Urine 6.5 (5.0-8.0); Protein,Urine Trace (Negative); Specific Gravity,Urine 1.023 (1.001-1.035); Urobilinogen,Urine <2.0 mg/dL (<2.0)
[2018-08-12] MEDS ORDERED: ALBUTEROL NEBULIZED 2.5 MG/3 ML INHALATION PRN (16:30)
[2018-08-12] MEDS ORDERED: traMADol 50 MG TAB PO PRN (16:30)
[2018-08-12] MEDS ORDERED: LORazepam 1 MG TAB PO PRN (16:35)
[2018-08-12 16:38] VITALS: BMI 34.4
--- NOTE | 2018-08-12 17:09 | P.CNOR ---
History of Present Illness - HPI Consult date: 08/12/18 Consult reason: fracture History of present illness: Patient is a pleasant 57-year-old female with a number of medical issues who presented to the emergency room after sustaining a fall with acute left hip pain. She says she usually endplates and all were she lives with a number of remaining but and relates with a cane which she uses out in front of her. She has long history of back pain and history of lumbar spine surgeries and pain issues and says that she felt a pain at her left hip passed out and fell. She says she's passed out a number of days this past week and she is not sure why. She sustained acute pain at her left hip was unable to get up off the floor. She doesn't say emergency room. She denies any chest pain shortness breath she has acute pain at her left hip but denies any pain at her knee ankle for her toes. She denies any new pain at her back or in her arms or neck. She denies any pain in her right lower extremity. The only new pain that she has at her left hip. she denies any nausea or vomiting or recent illness. She says she has multiple history of issues but is difficult to fully ascertain as she is somewhat of a poor historian. She is able follow commands and answer questions she has a legal guardian as she has some history of mental illness Review of Systems as per HPI. She denies any new pain in her right lower extremity. Denies any changes in her neck or upper extremity is. 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 History of Any Multi-Drug Resistant Organisms: None Reported Past Surgical History: Appendectomy, Orthopedic Surgery Additional Past Surgical History / Comment(s): exp lap, liver transplant in 1987 , lumbar fusion in 1991, right breast lumpectomy Past Anesthesia/Blood Transfusion Reactions: No Reported Reaction Past Psychological History: Anxiety, Bipolar, Depression, Panic Disorder Smoking Status: Current every day smoker Past Alcohol Use History: Rare Additional Past Alcohol Use History / Comment(s): Patient is a smoker of 8 cigarettes per day for the past 10-12 years. She denies any marijuana or street drug use. She states she drinks a couple beers on the weekends. Past Drug Use History: None Reported - Past Family History Father Family Medical History: Myocardial Infarction ([place]) Additional Family Medical History / Comment(s): Father in his 90s from a myocardial infarction. Mother Additional Family Medical History / Comment(s): Mother is alive at age 86 and patient denies any major medical problems. Brother(s) Additional Family Medical History / Comment(s): Patient has 5 brothers and 1 sister with no major medical problems. Patient does not have any children. Medications and Allergies Home Medications Medication Instructions Recorded Confirmed Type Loratadine [Claritin] 10 mg PO DAILY 01/02/17 08/12/18 History Acetaminophen Tab [Tylenol Tab] 500 mg PO TID 04/22/18 08/12/18 History Ferrous Sulfate [Feosol] 325 mg PO MOWEFR 04/22/18 08/12/18 History Fluticasone Nasal [place] [Flonase 1 spr EA NOSTRIL DAILY 04/22/18 08/12/18 History Nasal [place]] Ibuprofen [Motrin] 600 mg PO BID 04/22/18 08/12/18 History Losartan Potassium [Cozaar] 100 mg PO DAILY 04/22/18 08/12/18 History Magnesium Oxide [Mag-Ox] 400 mg PO DAILY 04/22/18 08/12/18 History Metoprolol Tartrate [Lopressor] 50 mg PO BID 04/22/18 08/12/18 History cloZAPine [Clozaril] 100 mg PO HS 04/22/18 08/12/18 History fluPHENAZine DECANOATE [Prolixin 50 mg IM [id number] 04/22/18 08/12/18 History Decanoate] fluvoxaMINE [Luvox] 100 mg PO DAILY 04/22/18 08/12/18 History hydrOXYzine PAMOATE [Vistaril] 50 mg PO TID 04/22/18 08/12/18 History traMADol HCL [Ultram] 50 mg PO BID PRN 04/22/18 08/12/18 History Albuterol Inhaler [Ventolin Hfa 2 puff INHALATION RT-Q4H PRN 08/12/18 08/12/18 History Inhaler] Cholecalciferol [Vitamin D3] 5,000 unit PO DAILY 08/12/18 08/12/18 History Sodium Chloride Tab 1 gm PO BID 08/12/18 08/12/18 History Allergies Allergy/AdvReac Type Severity Reaction Status Date / Time haloperidol [From Haldol] Allergy Anaphylaxis Verified 08/12/18 12:46 haloperidol lactate Allergy Anaphylaxis Verified 08/12/18 12:46 [From Haldol] iodine Allergy Anaphylaxis Verified 08/12/18 12:46 Physical Examination Osteopathic Statement: *. No significant issues noted on an osteopathic structural exam other than those noted in the History and Physical/Consult. - Hip left Gait: other (The patient is laying in bed that she has significant pain at her left hip with any sort of motion. She is able to dorsiflex and plantar flex her ankle foot and toes. Thank calf are soft nontender but she has pain at her left hip with any motion. Her right lower extremity is nontender to palpation and range motion. Abdomen soft nontender her chest has good excursion deep and space expiration. Her arms have full active and passive range of motion in her neck is nontender to palpation range of motion. She is obese. There is no open wounds lacerations or abrasions.) Results - Labs Labs: Abnormal Lab Results - Last 24 Hours (Table) 08/12/18 08/12/18 08/12/18 Range/Units 12:50 12:50 12:50 RBC 3.67 L (3.80-5.40) m/uL Hgb 10.2 L (11.4-16.0) gm/dL Hct 31.6 L (34.0-46.0) % Lymphocytes # 0.9 L (1.0-4.8) k/uL APTT 20.9 L (22.0-30.0) sec Chloride 108 H (98-107) mmol/L Carbon Dioxide 21 L (22-30) mmol/L AST 13 L (14-36) U/L Urine Protein (Negative) 08/12/18 Range/Units 15:51 RBC (3.80-5.40) m/uL Hgb (11.4-16.0) gm/dL Hct (34.0-46.0) % Lymphocytes # (1.0-4.8) k/uL APTT (22.0-30.0) sec Chloride (98-107) mmol/L Carbon Dioxide (22-30) mmol/L AST (14-36) U/L Urine Protein Trace H (Negative) H & H 08/12/18 Range/Units 12:50 Hgb 10.2 L (11.4-16.0) gm/dL Hct 31.6 L (34.0-46.0) % Coagulation 08/12/18 Range/Units 12:50 INR 1.0 (<1.2) Result Diagrams: 08/12/18 12:50 08/12/18 12:50 - Diagnostic results Hip x-ray: report reviewed, image reviewed (X-rays of her pelvis and left hip show an acute basicervical fracture with displacement. She has evidence of prior lumbar fusion and significant disc degeneration at her lower lumbar spine. There is no evidence of a mass) Assessment and Plan Assessment: Acute left hip basicervical femur fracture status post fall History of multiple medical issues with reports of numerous cancers History lumbar fusion History of mental illness Plan: Acute left hip basicervical femur fracture status post fall History of multiple medical issues with reports of numerous cancers History lumbar fusion History of mental illness Reports of syncope, acute Anxiety Fibromyalgia The patient sustained an acute fracture of her left hip with the basicervical fracture with displacement. We are involving the case in this regard. With the injury the patient will require surgical intervention to give the best chance of regaining mobilization and ambulation. She has a number of medical issues and reports of syncopal episodes and will require clearance prior to surgical intervention. We will go ahead and make her nothing by mouth after midnight tonight and prepared for the possibility of surgical intervention tomorrow. She's not able to be cleared she may obtain surgery on Wednesday or Wednesday. For the time being she should remain on bedrest and nothing by mouth after midnight. The patient has multiple medical issues and is being evaluated by medicine service for appropriate medical management and clearance for surgical intervention. I discussed the different issues involved in surgery for her left hip. We'll plan to perform an intramedullary hip screw placement and fixation of left hip as soon as she is cleared forsurgery and able to go through to surgery. I discussed the risks, occasions associated with procedure including but not limited to the risk of bleeding risk infection was need for further surgeries decreased loss of motion loss function malunion nonunion hardware failure and nerve damage. We also discussed possible issues with anesthesia and recovery. I answered questions best my ability healing which she can understand and she is interested in proceeding with her surgery. The nursing staff also discussed the case with her legal guardian and they're aware. We will proceed with surgical intervention when she is able for intramedullary fixation of her left hip fracture.
--- NOTE | 2018-08-12 18:16 | P.HPIM ---
History of Present Illness Patient is a pleasant 57-year-old female came in after fall and a fracture of the left hip. Patient had multiple syncopal episode without any seizure-like activity. Patient has a syncopal episode lasted a 2 or 3 days. Patient denied any leg patient was comparing of some lightheadedness associated with that. No recent change in medications patient denied any fevers chills nausea vomiting abdominal pain. EKG showed normal sinus rhythm. Echocardiac will be obtained. His low operative risk for surgery. Review of Systems REVIEW OF SYSTEMS: CONSTITUTIONAL: No fever, no malaise, no fatigue. HEENT: No recent visual problems or hearing problems. Denied any sore throat. CARDIOVASCULAR: No chest pain, orthopnea, PND, no palpitations, PULMONARY: No shortness of breath, no cough, no hemoptysis. GASTROINTESTINAL: No diarrhea, no nausea, no vomiting, no abdominal pain. Normoactive bowel sounds. NEUROLOGICAL: No headaches, no weakness, no numbness. HEMATOLOGICAL: Denies any bleeding or petechiae. GENITOURINARY: Denies any burning micturition, frequency, or urgency. MUSCULOSKELETAL/RHEUMATOLOGICAL: Denies any joint pain, swelling, or any muscle pain. ENDOCRINE: Denies any polyuria or polydipsia. The rest of the 14-point review of systems is negative. 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 History of Any Multi-Drug Resistant Organisms: None Reported Past Surgical History: Appendectomy, Orthopedic Surgery Additional Past Surgical History / Comment(s): exp lap, liver transplant in 1987 , lumbar fusion in 1991, right breast lumpectomy Past Anesthesia/Blood Transfusion Reactions: No Reported Reaction Past Psychological History: Anxiety, Bipolar, Depression, Panic Disorder Smoking Status: Current every day smoker Past Alcohol Use History: Rare Additional Past Alcohol Use History / Comment(s): Patient is a smoker of 8 cigarettes per day for the past 10-12 years. She denies any marijuana or street drug use. She states she drinks a couple beers on the weekends. Past Drug Use History: None Reported - Past Family History Father Family Medical History: Myocardial Infarction (SD) Additional Family Medical History / Comment(s): Father in his 90s from a myocardial infarction. Mother Additional Family Medical History / Comment(s): Mother is alive at age 86 and patient denies any major medical problems. Brother(s) Additional Family Medical History / Comment(s): Patient has 5 brothers and 1 sister with no major medical problems. Patient does not have any children. Medications and Allergies Home Medications Medication Instructions Recorded Confirmed Type Loratadine [Claritin] 10 mg PO DAILY 01/02/17 08/12/18 History Acetaminophen Tab [Tylenol Tab] 500 mg PO TID 04/22/18 08/12/18 History Ferrous Sulfate [Feosol] 325 mg PO MOWEFR 04/22/18 08/12/18 History Fluticasone Nasal [place] [Flonase 1 spr EA NOSTRIL DAILY 04/22/18 08/12/18 History Nasal [place]] Ibuprofen [Motrin] 600 mg PO BID 04/22/18 08/12/18 History Losartan Potassium [Cozaar] 100 mg PO DAILY 04/22/18 08/12/18 History Magnesium Oxide [Mag-Ox] 400 mg PO DAILY 04/22/18 08/12/18 History Metoprolol Tartrate [Lopressor] 50 mg PO BID 04/22/18 08/12/18 History cloZAPine [Clozaril] 100 mg PO HS 04/22/18 08/12/18 History fluPHENAZine DECANOATE [Prolixin 50 mg IM [id number] 04/22/18 08/12/18 History Decanoate] fluvoxaMINE [Luvox] 100 mg PO DAILY 04/22/18 08/12/18 History hydrOXYzine PAMOATE [Vistaril] 50 mg PO TID 04/22/18 08/12/18 History traMADol HCL [Ultram] 50 mg PO BID PRN 04/22/18 08/12/18 History Albuterol Inhaler [Ventolin Hfa 2 puff INHALATION RT-Q4H PRN 08/12/18 08/12/18 History Inhaler] Cholecalciferol [Vitamin D3] 5,000 unit PO DAILY 08/12/18 08/12/18 History Sodium Chloride Tab 1 gm PO BID 08/12/18 08/12/18 History Allergies Allergy/AdvReac Type Severity Reaction Status Date / Time haloperidol [From Haldol] Allergy Anaphylaxis Verified 08/12/18 12:46 haloperidol lactate Allergy Anaphylaxis Verified 08/12/18 12:46 [From Haldol] iodine Allergy Anaphylaxis Verified 08/12/18 12:46 Physical Exam Vitals: Vital Signs Temp Pulse Resp BP Pulse Ox 08/12/18 15:11 72 18 124/76 99 08/12/18 11:48 97.1 F L 68 16 114/65 97 Intake and Output 08/12/18 08/12/18 08/12/18 06:59 14:59 22:59 Other: Voiding Method Indwelling Catheter Weight 99.79 kg 99.79 kg PHYSICAL EXAMINATION: GENERAL: The patient is alert and oriented x3, not in any acute distress. Well developed, well nourished. HEENT: Pupils are round and equally reacting to light. EOMI. No scleral icterus. No conjunctival pallor. Normocephalic, atraumatic. No pharyngeal erythema. No thyromegaly. CARDIOVASCULAR: S1 and S2 present. No murmurs, rubs, or gallops. PULMONARY: Chest is clear to auscultation, no wheezing or crackles. ABDOMEN: Soft, nontender, nondistended, normoactive bowel sounds. No palpable organomegaly. MUSCULOSKELETAL: No joint swelling or deformity. EXTREMITIES: No cyanosis, clubbing, or pedal edema. NEUROLOGICAL: Gross neurological examination did not reveal any focal deficits. SKIN: No rashes. Results CBC & Chem 7: 08/12/18 12:50 08/12/18 12:50 Labs: Abnormal Lab Results - Last 24 Hours (Table) 08/12/18 08/12/18 08/12/18 Range/Units 12:50 12:50 12:50 RBC 3.67 L (3.80-5.40) m/uL Hgb 10.2 L (11.4-16.0) gm/dL Hct 31.6 L (34.0-46.0) % Lymphocytes # 0.9 L (1.0-4.8) k/uL APTT 20.9 L (22.0-30.0) sec Chloride 108 H (98-107) mmol/L Carbon Dioxide 21 L (22-30) mmol/L AST 13 L (14-36) U/L Urine Protein (Negative) 08/12/18 Range/Units 15:51 RBC (3.80-5.40) m/uL Hgb (11.4-16.0) gm/dL Hct (34.0-46.0) % Lymphocytes # (1.0-4.8) k/uL APTT (22.0-30.0) sec Chloride (98-107) mmol/L Carbon Dioxide (22-30) mmol/L AST (14-36) U/L Urine Protein Trace H (Negative) Thrombosis Risk Factor Assmnt - Choose All That Apply Any of the Below Risk Factors Present?: Yes Each Factor Represents 1 point: Obesity (BMI >25) Each Risk Factor Represents 2 Points: Patient confined to bed Thrombosis Risk Factor Assessment Total Risk Factor Score: 3 Thrombosis Risk Factor Assessment Level: Moderate Risk Assessment and Plan Plan: -Syncope: Etiology is unclear be assessed will be obtain patient will be monitored on telemetry echocardiac family obtained. We will obtain orthostatic vitals. Hold off on antidepressant medications except for metoprolol patient is not bradycardic at this time -Left hip fracture: Management as per orthopedic surgery in management with Toradol, morphine. -Hypertension patient blood pressure is good hold off antidepressant medications with concerns of perioperative hypotension -Seizure disorder -Hypothyroidism -Bipolar disorder -Nicotine use: Counseling was provided For above-mentioned chronic with problems patient will be resumed on appropriate home medications except for those antidepressive medications mentioned above
[2018-08-12] MEDS: METOPROLOL TARTRATE 50 MG TAB PO SCH (20:46)
[2018-08-12] MEDS: FAMOTIDINE 20 MG TAB PO SCH (20:46)
[2018-08-12] MEDS: ACETAMINOPHEN TAB 500 MG TAB PO SCH (20:46)
[2018-08-12] MEDS: cloZAPine 100 MG TAB PO SCH (20:47)
[2018-08-12] MEDS ORDERED: IBUPROFEN 600 MG TAB PO SCH (21:00)
[2018-08-13] MEDS: MORPHINE SULFATE 4 MG/ML SYRINGE IV PRN ×3 (05:29→14:14)
[2018-08-13] MEDS: ACETAMINOPHEN TAB 500 MG TAB PO SCH ×3 (07:48→21:37)
[2018-08-13] MEDS: FLUTICASONE 50MCG/SPRAY NASAL 16GM EA NOSTRIL SCH (07:50)
[2018-08-13] MEDS: METOPROLOL TARTRATE 50 MG TAB PO SCH ×2 (07:50→21:38)
[2018-08-13] MEDS: FAMOTIDINE 20 MG TAB PO SCH ×2 (07:51→21:38)
--- NOTE | 2018-08-13 08:46 | P.PN ---
Progress Note - Text Progress Note Date: 08/13/18 Patient is seen and examined at bedside. She is complaints of pain at her left hip when she moves. She had great difficulty sleeping last night. She is afebrile stable vital signs. She denies any chest pain shortness breath. Neurovascularly in her lower extremity she has sustained dorsiflexion plantar flexion and EHL intact. Pulses are 2 over 4 distally Sensory is intact. No neurologic changes Assessment and plan Left basicervical hip fracture with displacement acute status post fall Syncopal episode Multiple medical history Per medicine the patient is at low surgical risk and we will plan on proceeding with surgical intervention for reduction and internal fixation of her left hip fracture with an intramedullary hip screw. She remains nothing by mouth we'll plan for surgery later today. The patient has concerns about her postoperative course and certainly we will have to make sure that she is safe and able to mobilize postoperatively once her hip is stabilized later today. We will plan for surgery today
[2018-08-13] MEDS ORDERED: PHENYLEPHRINE-0.9% NACL SYG 1 MG/10 ML SYRINGE ONE (15:55)
[2018-08-13] MEDS ORDERED: fentaNYL (PF) 50 MCG/ML 2 ML AMP ONE (15:55)
[2018-08-13] MEDS ORDERED: MIDAZOLAM 2 MG/2 ML VIAL ONE (15:55)
[2018-08-13] MEDS ORDERED: SUCCINYLCHOLINE CHLORIDE 100 MG/5 ML SYR IV ONE (15:55)
[2018-08-13] MEDS ORDERED: SODIUM CHLORIDE 0.9% 1,000 ML IV ONE (15:55)
[2018-08-13] MEDS ORDERED: ROCURONIUM BROMIDE 10 MG/ML 10 ML VIAL IV ONE (15:55)
[2018-08-13] MEDS ORDERED: LIDOCAINE 1% INJ 10MG/ML (20 ML MDV) ONE (15:55)
[2018-08-13] MEDS ORDERED: PROPOFOL 10 MG/ML 20 ML VIAL IV ONE (15:55)
[2018-08-13] MEDS ORDERED: KETAMINE 10 MG/ML 20 ML VIAL ONE (15:55)
--- NOTE | 2018-08-13 16:06 | P.PN ---
Subjective Patient is a pleasant 57-year-old female came in after fall and a fracture of the left hip. Patient had multiple syncopal episode without any seizure-like activity. Patient has a syncopal episode lasted a 2 or 3 days. Patient denied any leg patient was comparing of some lightheadedness associated with that. No recent change in medications patient denied any fevers chills nausea vomiting abdominal pain. EKG showed normal sinus rhythm. Echocardiac will be obtained. His low operative risk for surgery. 08/30/2018 Echocardiac M is pending patient will undergo internal fixation of her left hip. No overnight events. Constitutional: Denied any fatigue denied any fever. Cardio vascular: denied any chest pain, palpitations Gastrointestinal denied any nausea vomiting Pulmonary: Denied any shortness of breath cough Neurologic denied any new focal deficits Objective - Vital Signs Vital signs: Vital Signs Temp 99.4 F 08/13/18 07:39 Pulse 85 08/13/18 07:39 Resp 17 08/13/18 07:39 BP 110/77 08/13/18 07:39 Pulse Ox 95 08/13/18 07:39 Intake & Output 08/12/18 08/13/18 08/13/18 18:59 06:59 18:59 Intake Total 400 Output Total 650 400 Balance -250 -400 Weight 99.79 kg Intake: Other 400 Output: Urine 650 400 Uretheral (Gonzalez) 400 Other: Voiding Method Indwelling Catheter Indwelling Catheter - Exam PHYSICAL EXAMINATION: GENERAL: The patient is alert and oriented x3, not in any acute distress. Well developed, well nourished. HEENT: Pupils are round and equally reacting to light. EOMI. No scleral icterus. No conjunctival pallor. Normocephalic, atraumatic. No pharyngeal erythema. No thyromegaly. CARDIOVASCULAR: S1 and S2 present. No murmurs, rubs, or gallops. PULMONARY: Chest is clear to auscultation, no wheezing or crackles. ABDOMEN: Soft, nontender, nondistended, normoactive bowel sounds. No palpable organomegaly. MUSCULOSKELETAL: No joint swelling or deformity. EXTREMITIES: No cyanosis, clubbing, or pedal edema. NEUROLOGICAL: Gross neurological examination did not reveal any focal deficits. SKIN: No rashes. - Labs CBC & Chem 7: 08/12/18 12:50 10/12/18 12:50 Labs: Abnormal Lab Results - Last 24 Hours (Table) 08/12/18 Range/Units 15:51 Urine Protein Trace H (Negative) Assessment and Plan Plan: -Syncope: Etiology is unclear, echocardiac gram is pending patient can proceed for the surgery will monitor her here post surgery. -Left hip fracture: Management as per orthopedic surgery in management with Toradol, morphine. -Hypertension patient blood pressure is good hold off antidepressant medications with concerns of perioperative hypotension -Seizure disorder -Hypothyroidism -Bipolar disorder -Nicotine use: Counseling was provided For above-mentioned chronic with problems patient will be resumed on appropriate home medications except for those antidepressive medications mentioned above
[2018-08-13] MEDS ORDERED: ceFAZolin 1,000 MG VIAL IVPB ONE ×2 (16:30→16:31)
[2018-08-13] MEDS ORDERED: LACTATED RINGERS 1,000 ML IV ONE (17:18)
[2018-08-13] MEDS: MIDAZOLAM 2 MG/2 ML VIAL IVP ONE ×2 (18:55→19:00)
[2018-08-13] MEDS ORDERED: MAGNESIUM HYDROXIDE 2,400 MG/10 ML CUP PO PRN ×2 (18:58→19:01)
[2018-08-13] MEDS ORDERED: BENZOCAINE/MENTHOL LOZENG 1 EACH LOZENGE MUCOUS MEM PRN (18:58)
[2018-08-13] MEDS ORDERED: HYDROmorphone 1 MG/ML 1 ML SYRINGE IVP PRN ×2 (18:58)
[2018-08-13] MEDS ORDERED: HYDROcodone/APAP 5-325MG 1 EACH TAB PO PRN (19:01)
[2018-08-13] MEDS ORDERED: HYDROmorphone 0.5 MG/0.5 ML SYRINGE IVP PRN (19:01)
[2018-08-13] MEDS ORDERED: NALOXONE 0.4 MG/ML 1 ML VIAL IV PRN (19:01)
[2018-08-13] MEDS ORDERED: MEPERIDINE 50 MG/ML SYRINGE IVP ONE (19:06)
--- NOTE | 2018-08-13 19:19 | P.OP ---
Date of Procedure: 08/13/18 Preoperative Diagnosis: Left hip femur basicervical hip fracture, acute traumatic Postoperative Diagnosis: Same Anesthesia: GETA Pathology: other (Proximal femur reaming sent to pathology) Condition: stable Disposition: PACU Description of Procedure: Preoperative diagnosis: Basicervical displaced left femoral hip fracture, acute traumatic Postoperative diagnosis: Same Procedure: intertrochanteric hip screw placement Use of fluoroscopic guidance Closed reduction Surgeon: Dr. Shannon Asst.: Js Anesthesia: Gen. per Dr. Bush Estimated blood loss: Approximately 150 mL Components implanted: [employer] 125 InterTAN IM hip screw with 95 mm lag screw and a 90 mm compression screw and a 35 mm distal locking screw Disposition: To recovery room in good stable condition Operative indications The patient sustained a injury and suffered a hip fracture at the basicervical area of her femur which was displaced and angulated. We were involved in the case in regard to his hip fracture. After evaluation it was determined that they would be a candidate for hip internal fixation and stabilization via surgical intervention. This would give them the best chance of mobilization and ambulation. We discussed the range of treatment options from conservative to surgical. They elected proceed with surgical intervention. She had an issue with syncopal episode apparently at home when she fell and she was cleared by medicine service. We answered their questions to the best of our ability healing which they can understand. We discussed the case with the power of deputy commonwealth's attorney and answered all their questions about her ability and they signed informed consent. Operative summary After obtaining informed consent evaluation by anesthesia, preoperative evaluation and clearance for medical service, the patient was identified and prepped Gonzalez area and the surgical site was marked and left hip. There brought to the operating room where the given appropriate anesthesia by the anesthesia department in standard fashion without any complications. Once the anesthesia was established we were able to position the patient. The patient was placed on a fracture table with a well-padded perineal post. The operative side was placed in a foot jenkins stirrup which was well-padded well molded and placed in gentle in-line traction. The nonoperative leg was placed in a padded stirrup. C-arm was brought in and we performed a closed reduction technique at the hip. We are able to get good alignment good position of the basicervical femur fracture with gentle reduction techniques and traction utilizing the fracture table. There is some anterior angulation we were able to correct this well get good reduction at the basicervical area Once patient was well positioned lower extremity was prepped and draped in normal standard sterile fashion. An appropriate keystone protocol and timeout was completed and were able to proceed with surgery. He started point just proximal to the greater trochanter was established and a median incision approximately 2 inches in length approximately to the greater trochanter. I dissected down through the fascia and I was able to expose the tip of the greater trochanter. A sharp starting hole was established at the tip of the greater trochanter near the junction of the anterior and middle third. Positioning was confirmed with C-arm guidance. I was able to start the awl into the bone and then use a guidepin at the starting point establish down to the level of the lesser trochanter at the intramedullary space. I then used a starting reamer for the greater trochanter placed over the guidepin and reamed down appropriately under C-arm guidance. I was unable to place a guidepin into the intramedullary aspect of the femur and then reamed appropriately to the appropriate length. The positioning was confirmed on C-arm guidance. With the femur appropriately reamed I then chose the appropriate size intramedullary aroldo which was connected to the appropriate jig. The jig was checked for alignment. The area was copiously irrigated and suctioned dry and we're able place the aroldo at intramedullary space through the starting hole appropriately. It was seated down for appropriate position to align the leg pain into the femoral neck and head. A second incision was established at the site for the placement of the lag screw area and the guide was established at the lateral aspect of the femur and a guidepin was drilled into the femoral neck and head and near center center position. With this appropriate alignment and position where a reamer over the guidepin making sure not to penetrate the articular surface. The position was confirmed on C-arm guidance in AP and lateral positions. With this established we were able to place the appropriate size lag screw after measuring. Lag screw was placed into the femoral neck and head good alignment good position with excellent bony purchase. It was appropriately aligned and we placed a locking screw through the aroldo appropriately and checked that the position was established. I was able to drill and place the compression screw immediately adjacent and inferior to the lag screw which gave good compression across the fracture site in good alignment and position. With the area in good position able place a distal locking screw. We attempted the use the distal guide sleeve however the alignment was somewhat off and I had to do a freehand technique with C-arm guidance to get distal locking screw intact. It was measured appropriately and a distal locking screw was placed in good alignment and good position with excellent bony purchase. The position was checked to make sure it was through the appropriate hole in the intramedullary aroldo. With this established we're able to remove the jig completely from the aroldo and final images were taken which showed excellent alignment and position of the hardware and the fracture. With the aroldo in place and the fracture stable, although the incision sites were copiously irrigated and suctioned dry. Good hemostasis was maintained. Deep fascial layers were closed with #1 Vicryl. Subcu tissue was closed with 2-0 Vicryl.the skin was closed with staplesre cleaned and dried with dressed with Adaptic 4 x 4's and ABDs. Drapes were broken down, the hip was held in stable position with the post being removed safely once the positioning was stabilized. The patient was then transferred back to their hospital bed being careful to maintain the hip and C-spine alignment and airway. Once stable to patient was transferred back to the postanesthesia care unit to be readmitted for pain control and DVT prophylaxis medical management and monitoring and mobilization we will continue follow patient closely throughout their postoperative course. she remained nonweightbearing on left lower extremity
[2018-08-13] MEDS: cloZAPine 100 MG TAB PO SCH (21:38)
[2018-08-13] MEDS: hydrOXYzine PAMOATE 25 MG CAP PO SCH (21:38)
[2018-08-13] MEDS: SODIUM CHLORIDE 0.9% 1,000 ML IV SCH (21:39)
[2018-08-13] MEDS: SODIUM CHLORIDE TAB 1 GM TAB PO SCH (21:43)
[2018-08-13 21:54] LABS: Basophils % (A) 0 %; Eosinophils % (A) 0 %; HCT 28.8 % (34.0-46.0); HGB 9.5 gm/dL (11.4-16.0); Lymphocytes % (A) 10 %; MCH 28.5 pg (25.0-35.0); MCHC 33.1 g/dL (31.0-37.0); Mean Platelet Volume 6.4; Monocytes # (A) 0.7 k/uL (0-1.0); Monocytes % (A) 7 %; Neutrophils # (A) 7.5 k/uL (1.3-7.7); Neutrophils % (A) 80 %; Platelet Count 227 k/uL (150-450); RBC 3.35 m/uL (3.80-5.40); RDW 12.4 % (11.5-15.5); WBC 9.4 k/uL (3.8-10.6)
--- NOTE | 2018-08-13 22:02 | FL ---
EXAMINATION TYPE: FL guidance operating room DATE OF EXAM: 08/13/2018 CLINICAL HISTORY: Left hip fracture. TECHNIQUE: Fluoroscopy. 2 intraoperative views left hip. COMPARISON: Pelvic and left hip x-ray from yesterday.. FINDINGS: Fluoroscopic guidance was provided during open reduction and internal fixation procedure p erformed by Dr. Shannon. A total of 91 seconds of fluoroscopic time was utilized during the procedure and four spot intraoperative images are acquired. Intraoperative images obtained show placement of intramedullary aroldo with distal transverse fixating s crew and larger femoral neck fixating screw through the basicervical fracture of left proximal femur. Satisfactory alignment is seen on intraoperative images saved. IMPRESSION: As Above.
[2018-08-13] MEDS: KETOROLAC 30 MG/ML 1 ML VIAL IVP PRN (22:40)
[2018-08-14] MEDS: ceFAZolin IN SWFI 2 GM/20 ML SYRINGE IVP SCH ×2 (00:40→06:59)
[2018-08-14] MEDS: HYDROmorphone 1 MG/ML 1 ML SYRINGE IVP PRN ×2 (00:42→22:53)
[2018-08-14] MEDS: HYDROcodone/APAP 5-325MG 1 EACH TAB PO PRN ×4 (05:12→21:45)
[2018-08-14] MEDS: ACETAMINOPHEN TAB 500 MG TAB PO SCH ×3 (06:55→21:46)
[2018-08-14] MEDS: MAGNESIUM OXIDE 400 MG TAB PO SCH (07:00)
[2018-08-14] MEDS: FAMOTIDINE 20 MG TAB PO SCH ×2 (07:00→21:45)
[2018-08-14] MEDS: ASPIRIN 325 MG TAB PO SCH (07:00)
[2018-08-14] MEDS: SODIUM CHLORIDE 0.9% 1,000 ML IV SCH ×2 (07:00→21:46)
[2018-08-14] MEDS: METOPROLOL TARTRATE 50 MG TAB PO SCH ×2 (07:01→21:46)
[2018-08-14] MEDS: hydrOXYzine PAMOATE 25 MG CAP PO SCH (07:01)
[2018-08-14] MEDS: LORATADINE 10 MG TAB PO SCH (07:01)
[2018-08-14] MEDS: LOSARTAN 50 MG TAB PO SCH (07:01)
[2018-08-14] MEDS: FLUTICASONE 50MCG/SPRAY NASAL 16GM EA NOSTRIL SCH (07:01)
[2018-08-14] MEDS: CHOLECALCIFEROL 1,000 UNIT TAB PO SCH (07:01)
[2018-08-14] MEDS ORDERED: SENNOSIDES-DOCUSATE SODIUM 1 EACH TAB PO SCH (09:00)
[2018-08-14] MEDS: SODIUM CHLORIDE TAB 1 GM TAB PO SCH ×3 (09:48→21:46)
[2018-08-14 11:11] LABS: Basophils % (A) 0 %; Eosinophils % (A) 1 %; HCT 27.6 % (34.0-46.0); Lymphocytes % (A) 16 %; MCH 28.5 pg (25.0-35.0); MCHC 32.7 g/dL (31.0-37.0); MCV 87.3 fL (80.0-100.0); Mean Platelet Volume 6.9; Monocytes # (A) 0.5 k/uL (0-1.0); Monocytes % (A) 8 %; Neutrophils # (A) 4.6 k/uL (1.3-7.7); Neutrophils % (A) 73 %; Platelet Count 205 k/uL (150-450); RBC 3.16 m/uL (3.80-5.40); RDW 12.6 % (11.5-15.5); WBC 6.4 k/uL (3.8-10.6)
[2018-08-14 11:19] LABS: Anion Gap 9 mmol/L; Blood Urea Nitrogen 13 mg/dL (7-17); Calcium 8.8 mg/dL (8.4-10.2); Carbon Dioxide 20 mmol/L (22-30); Chloride 107 mmol/L (98-107); Glucose 114 mg/dL (74-99); Potassium 3.8 mmol/L (3.5-5.1); Sodium 136 mmol/L (137-145)
--- NOTE | 2018-08-14 12:20 | P.PN ---
Progress Note - Text Progress Note Date: 08/14/18 Postoperative day #1 Patient is seen and examined today at bedside. The patient has some pain around the surgical site as expected. Pain is being controlled with medication. She has not yet been out of bed. She is tolerating her diet adequately. Her pains adequately controlled. Physical Exam Afebrile with stable vital signs Abdomen is soft nontender. Chest has good excursion deep and space expiration The incision site is clean dry and intact. No erythema there is no purulence. Her left thigh were soft nontender. There is no purulence. Extremities have not had neurologic change from prior to surgery. She has sustained dorsal to plantar flexion and EHL intact. Calves and thighs were soft nontender without evidence of DVT. Assessment/Plan Postoperative day 1 status post intramedullary hip screw placement for left hip basicervical femur fracture, acute traumatic due to fall Patient is progressing as expected from the surgery. We will continue to increase the patient's mobilization with therapy. We will order a walker for her. It is difficult to determine the amount of help that she has at home and she may need custodial facility or rehab after she is discharged from hospital tomorrow or Wednesday We will continue pain control with oral or IV medications. We'll continue to follow patient closely.
[2018-08-14] MEDS ORDERED: POLYETHYLENE GLYCOL 3350 17 GM POWD.PACK PO PRN (13:28)
--- NOTE | 2018-08-14 14:06 | P.PN ---
Subjective Patient is a pleasant 57-year-old female came in after fall and a fracture of the left hip. Patient had multiple syncopal episode without any seizure-like activity. Patient has a syncopal episode lasted a 2 or 3 days. Patient denied any leg patient was comparing of some lightheadedness associated with that. No recent change in medications patient denied any fevers chills nausea vomiting abdominal pain. EKG showed normal sinus rhythm. Echocardiac will be obtained. His low operative risk for surgery. 08/13/2018 Echocardiac M is pending patient will undergo internal fixation of her left hip. No overnight events. 08/14/2018 Patient underwent a closed reduction and fixation of the left hip. Patient is otherwise clinically doing well but the still having some pain no bowel sounds but constipated was started on bowel regimen and echo pending Constitutional: Denied any fatigue denied any fever. Cardio vascular: denied any chest pain, palpitations Gastrointestinal denied any nausea vomiting Pulmonary: Denied any shortness of breath cough Neurologic denied any new focal deficits Objective - Vital Signs Vital signs: Vital Signs Temp 98.9 F 08/14/18 06:51 Pulse 82 08/14/18 06:51 Resp 12 08/14/18 06:51 BP 126/84 08/14/18 06:51 Pulse Ox 94 L 08/14/18 06:51 Intake & Output 08/13/18 08/14/18 08/14/18 18:59 06:59 18:59 Intake Total 1300 1200 240 Output Total 750 300 Balance 550 900 240 Intake: IV 1300 0 Intake, IV Titration 1200 Amount Sodium Chloride 0.9% 1, 1200 000 ml @ 75 mls/hr IV . [id number] [facility] Rx#:[id number] Oral 240 Output: Urine 600 300 Uretheral (Gonzalez) 400 Estimated Blood Loss 150 Other: Voiding Method Indwelling Catheter Indwelling Catheter - Exam PHYSICAL EXAMINATION: GENERAL: The patient is alert and oriented x3, not in any acute distress. Well developed, well nourished. HEENT: Pupils are round and equally reacting to light. EOMI. No scleral icterus. No conjunctival pallor. Normocephalic, atraumatic. No pharyngeal erythema. No thyromegaly. CARDIOVASCULAR: S1 and S2 present. No murmurs, rubs, or gallops. PULMONARY: Chest is clear to auscultation, no wheezing or crackles. ABDOMEN: Soft, nontender, nondistended, normoactive bowel sounds. No palpable organomegaly. MUSCULOSKELETAL: No joint swelling or deformity. EXTREMITIES: No cyanosis, clubbing, or pedal edema. NEUROLOGICAL: Gross neurological examination did not reveal any focal deficits. SKIN: No rashes. - Labs CBC & Chem 7: 08/14/18 10:36 08/14/18 10:37 Labs: Abnormal Lab Results - Last 24 Hours (Table) 08/13/18 08/14/18 08/14/18 Range/Units 21:33 10:36 10:37 RBC 3.35 L 3.16 L (3.80-5.40) m/uL Hgb 9.5 L 9.0 L (11.4-16.0) gm/dL Hct 28.8 L 27.6 L (34.0-46.0) % Sodium 136 L (137-145) mmol/L Carbon Dioxide 20 L (22-30) mmol/L Glucose 114 H (74-99) mg/dL Assessment and Plan Plan: -Syncope: No lightheadedness at this time echo pending -Left hip fracture: Management as per orthopedic surgery in management with Toradol, morphine. Patient is status post open reduction and fixation of the left hip -Hypertension -Seizure disorder -Hypothyroidism -Bipolar disorder -Nicotine use: Counseling was provided For above-mentioned chronic with problems patient will be resumed on appropriate home medications except for those antidepressive medications mentioned above
[2018-08-14] MEDS: KETOROLAC 30 MG/ML 1 ML VIAL IVP PRN (16:04)
[2018-08-14] MEDS: SENNOSIDES-DOCUSATE SODIUM 1 EACH TAB PO SCH (21:42)
[2018-08-14] MEDS: cloZAPine 100 MG TAB PO SCH (22:54)
--- NOTE | 2018-08-15 08:33 | P.PN ---
Progress Note - Text Progress Note Date: 08/15/18 Patient is a very pleasant 57-year-old female who is seen and examined at bedside for follow-up evaluation after going left hip intramedullary nail fixation left basicervical hip fracture performed on 08/13/2018. Postoperatively patient continues to have some pain at the surgical site the left hip but her pain has been adequately controlled. She has remained nonweightbearing on the left lower extremity. She is eating and voiding without difficulty. Gonzalez catheter continues to be intact. She states she does feel some improvement of her pain postoperatively. She does not feel she is ready for discharge to rehabilitation facility. She has no new complaints of the bedside. Patient also has significant medical history including hypertension, seizure disorder, hypothyroidism, and bipolar disorder. she has been experiencing syncopal episodes recently. Physical Exam Intramedullary [place] for Intertrochanteric Fracture: Status post surgical day number 2 Patient is examined lying in bed Patient is awake and alert, and oriented 3 Vital signs stable Good chest excursion with deep inspiration and expiration Abdomen soft nontender No signs or symptoms of DVT; no calf pain Lower extremity cuffs in place on the right Dressing of the left hip is clean, dry, and intact; no erythema, purulence, or signs of infection [place] intact or the incision sites the left hip Full range of motion of ankles bilaterally Dorsiflexion, plantarflexion, and extensor hallucis longus positive sustained bilaterally Neurovascularly intact bilateral lower extremities Assessment: Status post left intramedullary nail fixation for left intertrochanteric hip fracture Status post fall Hypertension Seizure disorder Hypothyroidism Bipolar disorder recent syncopal episodes Plan: 1. Patient to remain nonweightbearing on the left lower extremity; patient may work with physical therapy to increase mobility and ambulation 2. Keep dressing over the left hip clean, dry, and intact 3. Discontinue Gonzalez catheter when patient is able to increase mobility and ambulation 4. Continue pain control medications as prescribed sitting Paige 5. Continue with anticoagulation therapy with aspirin 325 mg daily 6. Medicine to continue following the patient for their other medical diagnosis 7. We'll continue to follow the patient closely; patient has been progressing postoperatively; from an orthopedic standpoint, patient is clear for discharge once cleared by medicine; patient will most likely need custodial rehabilitation at discharge 8. Patient can follow-up with Moncho Rogers PA-C or Dr. Blayne Shannon at [facility] in 2-3 weeks following discharge
[2018-08-15] MEDS: HYDROcodone/APAP 5-325MG 1 EACH TAB PO PRN ×2 (09:29→15:03)
[2018-08-15] MEDS: METOPROLOL TARTRATE 50 MG TAB PO SCH ×2 (09:30→21:25)
[2018-08-15] MEDS: ASPIRIN 325 MG TAB PO SCH (09:30)
[2018-08-15] MEDS: LORATADINE 10 MG TAB PO SCH (09:30)
[2018-08-15] MEDS: LOSARTAN 50 MG TAB PO SCH (09:31)
[2018-08-15] MEDS: CHOLECALCIFEROL 1,000 UNIT TAB PO SCH (09:31)
[2018-08-15] MEDS: MAGNESIUM OXIDE 400 MG TAB PO SCH (09:31)
[2018-08-15] MEDS: FAMOTIDINE 20 MG TAB PO SCH ×2 (09:31→21:32)
[2018-08-15] MEDS: FLUTICASONE 50MCG/SPRAY NASAL 16GM EA NOSTRIL SCH (09:34)
[2018-08-15] MEDS: SENNOSIDES-DOCUSATE SODIUM 1 EACH TAB PO SCH ×2 (09:45→21:31)
[2018-08-15] MEDS: ACETAMINOPHEN TAB 500 MG TAB PO SCH ×3 (09:46→21:30)
[2018-08-15] MEDS: SODIUM CHLORIDE TAB 1 GM TAB PO SCH ×2 (11:15→23:18)
[2018-08-15] MEDS: SODIUM CHLORIDE 0.9% 1,000 ML IV SCH (11:16)
[2018-08-15] MEDS ORDERED: FERROUS SULFATE 325 MG TAB PO SCH (12:00)
[2018-08-15] MEDS: ONDANSETRON 4 MG/2 ML VIAL IVP PRN (15:03)
[2018-08-15 19:58] LABS: Basophils % (A) 0 %; Eosinophils # (A) 0.2 k/uL (0-0.7); Eosinophils % (A) 3 %; HCT 26.5 % (34.0-46.0); Lymphocytes # (A) 1.4 k/uL (1.0-4.8); Lymphocytes % (A) 25 %; MCV 85.4 fL (80.0-100.0); Mean Platelet Volume 6.8; Monocytes # (A) 0.4 k/uL (0-1.0); Monocytes % (A) 7 %; Neutrophils # (A) 3.7 k/uL (1.3-7.7); Neutrophils % (A) 64 %; Platelet Count 198 k/uL (150-450); RBC 3.11 m/uL (3.80-5.40); RDW 12.3 % (11.5-15.5); WBC 5.8 k/uL (3.8-10.6)
--- NOTE | 2018-08-15 20:18 | XR ---
EXAMINATION: XR chest 1V DATE AND TIME: 08/15/2018 7:57 PM CLINICAL INDICATION: pain when taking a deep breath TECHNIQUE: AP upright portable COMPARISON: 08/12/2018 FINDINGS: The lungs are clear. The pleural spaces are negative. The cardiac silhouette is not enlarged. The remainder of the mediastinal silhouette is unremarkable. The skeletal structures and soft tissues are negative for acute findings. IMPRESSION: NO ACUTE PROCESS.
[2018-08-15] MEDS ORDERED: cloZAPine 100 MG TAB PO SCH (21:00)
[2018-08-15] MEDS: methylPREDNISolone SOD SUCCI 125 MG/2 ML VIAL IV STA ×2 (21:32→23:17)
[2018-08-15] MEDS: diphenhydrAMINE 50 MG/ML 1 ML VIAL IVP STA ×2 (21:32→23:17)
[2018-08-15] MEDS: FAMOTIDINE 20 MG/2 ML VIAL IV STA ×2 (21:32→23:17)
--- NOTE | 2018-08-16 00:37 | CT ---
EXAMINATION TYPE: CT chest angio for PE DATE OF EXAM: 08/16/2018 COMPARISON: None HISTORY: elevated d-dimer CT DLP: 567.30 mGycm Automated exposure control for dose reduction was used. CONTRAST: CT Chest for pulmonary embolism performed with with IV Contrast, patient injected with 70 mL of Isovu e 370. FINDINGS: Heart and mediastinum are normal. There is no mediastinal adenopathy. There are no hilar masses. Thor acic aorta shows no evidence of aneurysm or dissection. There is no pericardial effusion. There is normal contrast opacification of the pulmonary arteries. I see no filling defects. The lungs are clear of infiltrate. There is 2.8 cm irregular hypodensity in the superior right lobe of the heide er that is probably a cyst. The bony thorax is intact. There is minimal pleural thickening in linear density at the posterior lung bases. IMPRESSION: There is some basilar pleural reaction and subsegmental atelectasis. No evidence of pulmonary embolis m.
[2018-08-16] MEDS: SODIUM CHLORIDE 0.9% 1,000 ML IV SCH ×2 (01:42→09:15)
[2018-08-16] MEDS: ONDANSETRON 4 MG/2 ML VIAL IVP PRN (01:56)
[2018-08-16] MEDS: ASPIRIN 325 MG TAB PO SCH (09:06)
[2018-08-16] MEDS: SENNOSIDES-DOCUSATE SODIUM 1 EACH TAB PO SCH (09:07)
[2018-08-16] MEDS: LOSARTAN 50 MG TAB PO SCH (09:07)
[2018-08-16] MEDS: MAGNESIUM OXIDE 400 MG TAB PO SCH (09:07)
[2018-08-16] MEDS: METOPROLOL TARTRATE 50 MG TAB PO SCH (09:07)
[2018-08-16] MEDS: FAMOTIDINE 20 MG TAB PO SCH (09:07)
[2018-08-16] MEDS: LORATADINE 10 MG TAB PO SCH (09:07)
[2018-08-16] MEDS: SODIUM CHLORIDE TAB 1 GM TAB PO SCH (09:09)
[2018-08-16] MEDS: ACETAMINOPHEN TAB 500 MG TAB PO SCH ×2 (09:10→14:53)
[2018-08-16] MEDS: FLUTICASONE 50MCG/SPRAY NASAL 16GM EA NOSTRIL SCH (09:15)
[2018-08-16] MEDS: CHOLECALCIFEROL 1,000 UNIT TAB PO SCH (09:15)
[2018-08-16] MEDS: HYDROcodone/APAP 5-325MG 1 EACH TAB PO PRN ×2 (09:52→14:54)
--- NOTE | 2018-08-16 12:48 | P.PN ---
Progress Note - Text Progress Note Date: 08/16/18 Patient is a very pleasant 57-year-old female who is seen and examined at bedside for follow-up evaluation after going left hip intramedullary nail fixation left basicervical hip fracture performed on 08/13/2018. Postoperatively patient continues to have some pain at the surgical site the left hip but her pain has been adequately controlled. She has remained nonweightbearing on the left lower extremity. She is eating and voiding without difficulty. Gonzalez catheter continues to be intact. She states she does feel some improvement of her pain postoperatively. She has no new complaints of the bedside. Patient also has significant medical history including hypertension, seizure disorder, hypothyroidism, and bipolar disorder. She has been experiencing syncopal episodes recently. She is planning for discharge to rehabilitation facility pending insurance approval. Medicine is planning for echocardiogram prior to discharge for her recent syncopal episodes. Physical Exam Intramedullary Rodding for Intertrochanteric Fracture: Status post surgical day number 3 Patient is examined lying in bed Patient is awake and alert, and oriented 3 Vital signs stable Good chest excursion with deep inspiration and expiration Abdomen soft nontender No signs or symptoms of DVT; no calf pain Lower extremity cuffs in place on the right Dressing of the left hip is clean, dry, and intact; no erythema, purulence, or signs of infection [place] intact or the incision sites the left hip Full range of motion of ankles bilaterally Dorsiflexion, plantarflexion, and extensor hallucis longus positive sustained bilaterally Neurovascularly intact bilateral lower extremities Assessment: Status post left intramedullary nail fixation for left intertrochanteric hip fracture Status post fall Hypertension Seizure disorder Hypothyroidism Bipolar disorder recent syncopal episodes Plan: 1. Patient to remain nonweightbearing on the left lower extremity; patient may work with physical therapy to increase mobility and ambulation 2. Keep dressing over the left hip clean, dry, and intact 3. Discontinue Gonzalez catheter when patient is able to increase mobility and ambulation 4. Continue pain control medications as prescribed sitting [place] and Dilaudid; prescription for [place] 5 mg/325 mg 1 tab every 6 hours as needed for pain, dispensed #28 is written, signed, and placed in the patient's chart for discharge. An opioid start talking form has been signed by the patient and myself today, 08/16/2018. MAPS has been reviewed today, 08/16/2018 5. Continue with anticoagulation therapy with aspirin 325 mg daily 6. Medicine to continue following the patient for their other medical diagnosis 7. We'll continue to follow the patient closely; patient has been progressing postoperatively; from an orthopedic standpoint, patient is clear for discharge once cleared by medicine; patient will most likely need fpc rehabilitation at discharge 8. Patient can follow-up with Moncho Rogers PA-C or Dr. Blayne Shannon at [facility] in 2-3 weeks following discharge
--- NOTE | 2018-08-16 13:09 | ECHOF ---
Referral Reason:Syncope, LV function MEASUREMENTS -------- HEIGHT: 170.2 cm WEIGHT: 99.8 kg BP: IVSd: 1.4 cm (0.6 - 1.1) LVIDd: 4.5 cm (3.9 - 5.3) LVPWd: 1.5 cm (0.6 - 1.1) IVSs: 1.8 cm LVIDs: 2.4 cm LVPWs: 2.3 cm RVIDd: 2.1 cm (< 3.3) Ao Diam: 3.2 cm (2.0 - 3.7) LA Diam: 3.1 cm (2.7 - 3.8) AV Cusp: 1.5 cm (1.5 - 2.6) EPSS: 0.3 cm MV E Shane: 0.97 m/s MV DecT: 135 ms MV A Shane: 1.08 m/s MV E/A Ratio: 0.89 RAP: 5.00 mmHg RVSP: 19.78 mmHg MV EF SLOPE: 91.95 mm/s (70 - 150) MV EXCURSION: 18.05 mm (> 18.000) FINDINGS -------- Sinus rhythm. This was a technically adequate study. The left ventricular size is normal. There is mild concentric left ventricular hypertrophy. Overa ll left ventricular systolic function is normal with, an EF between 55 - 60 %. The right ventricle is normal in size and function. The left atrium is normal in size. The right atrium is normal in size. The aortic valve is trileaflet, and appears structurally normal. No aortic stenosis or regurgitation. There is trace mitral regurgitation. Trace tricuspid regurgitation present. The right ventricular systolic pressure, as measured by Dopp ler, is 19.78mmHg. Pulmonic valve appears structurally normal. The aortic root size is normal. Normal inferior vena cava with normal inspiratory collapse consistent with estimated right atrial pre ssure of 5 mmHg. The pericardium is normal. CONCLUSIONS -------- 1. Sinus rhythm. 2. This was a technically adequate study. 3. The left ventricular size is normal. 4. There is mild concentric left ventricular hypertrophy. 5. Overall left ventricular systolic function is normal with, an EF between 55 - 60 %. 6. The right ventricle is normal in size and function. 7. The left atrium is normal in size. 8. The right atrium is normal in size. 9. The aortic valve is trileaflet, and appears structurally normal. No aortic stenosis or regurgitati on. 10. There is trace mitral regurgitation. 11. Trace tricuspid regurgitation present. 12. The right ventricular systolic pressure, as measured by Doppler, is 19.78mmHg. 13. Pulmonic valve appears structurally normal. 14. The aortic root size is normal. 15. Normal inferior vena cava with normal inspiratory collapse consistent with estimated right atrial pressure of 5 mmHg. 16. The pericardium is normal. SLUBBER RUNNER: Renetta Palumbo RDCS
--- NOTE | 2018-08-16 15:22 | P.DS ---
Providers Date of admission: 08/12/18 15:11 Expected date of discharge: 08/16/18 Attending physician: Karan Azul Consults: 08/12/18 14:58 Consult Physician Stat Consulting Provider: Tyron Shannon Consult Reason/Comments: Left hip fracture Do you want consulting provider notified?: Yes Primary care physician: Ulysses Valdezhven [facility] Hospital Course: Final Diagnoses: -Syncope: No lightheadedness at this time ,echo normal EF -Left hip fracture status post open reduction and fixation of the left hip -Hypertension -Seizure disorder -Hypothyroidism -Bipolar disorder -Nicotine use: Counseling was provided -Atelectasis Hospital course:Patient is a pleasant 57-year-old female came in after fall and a fracture of the left hip. Patient had multiple syncopal episode without any seizure-like activity. Patient has a syncopal episode lasted a 2 or 3 days. Patient denied any leg patient was comparing of some lightheadedness associated with that. No recent change in medications patient denied any fevers chills nausea vomiting abdominal pain. EKG showed normal sinus rhythm. Echocardiac will be obtained. His low operative risk for surgery. Echo ordered pending normal LV function.Patient underwent a closed reduction and fixation of the left hip. Significant clinical improvement. Patient has been cleared by orthopedic surgery for discharge. Patient is being discharged to subacute rehab in a stable condition with guarded prognosis. Exam GENERAL: The patient is alert and oriented x3, not in any acute distress. Well developed, well nourished. CARDIOVASCULAR: S1 and S2 present. No murmurs, rubs, or gallops. PULMONARY: Chest is clear to auscultation, no wheezing or crackles. ABDOMEN: Soft, nontender, nondistended, normoactive bowel sounds. NEUROLOGICAL: Gross neurological examination did not reveal any focal deficits. The impression and plan of care has been dictated as directed. : I performed a history and examination of this patient, discussed the same with the dictator. I agree with the dictator's note ,documented as a scribe. Any additional findings or plans will be noted. Time taken:35 Min Patient Condition at Discharge: Stable Plan - Discharge Summary Discharge Rx Participant: Yes New Discharge Prescriptions: New Hydrocodone/Acetaminophen [[place] 5-325] 1 each PO Q6HR PRN #28 tab PRN Reason: Pain Aspirin 325 mg PO DAILY tab Famotidine [Pepcid] 20 mg PO BID tab Polyethylene Glycol 3350 [Miralax] 17 gm PO DAILY PRN powd.pack PRN Reason: Constipation Sennosides-Docusate Sodium [Senokot-S] 1 each PO BID tab Continue Loratadine [Claritin] 10 mg PO DAILY Metoprolol Tartrate [Lopressor] 50 mg PO BID Magnesium Oxide [Mag-Ox] 400 mg PO DAILY Acetaminophen Tab [Tylenol] 500 mg PO TID fluvoxaMINE [Luvox] 100 mg PO DAILY cloZAPine [Clozaril] 100 mg PO HS Fluticasone Nasal [place] [Flonase Nasal [place]] 1 spr EA NOSTRIL DAILY Ferrous Sulfate [Iron (65 MG Elemental)] 325 mg PO MOWEFR fluPHENAZine DECANOATE [Prolixin Decanoate] 50 mg IM [id number] Losartan Potassium [Cozaar] 100 mg PO DAILY Sodium Chloride Tab 1 gm PO BID Cholecalciferol [Vitamin D3] 5,000 unit PO DAILY Albuterol Inhaler [Ventolin Hfa Inhaler] 2 puff INHALATION RT-Q4H PRN PRN Reason: Shortness Of Breath traMADol HCL [Ultram] 50 mg PO BID PRN #6 tablet PRN Reason: Pain Discontinued hydrOXYzine PAMOATE [Vistaril] 50 mg PO TID Ibuprofen [Motrin] 600 mg PO BID Discharge Medication List Loratadine [Claritin] 10 mg PO DAILY 01/02/17 [History] Acetaminophen Tab [Tylenol] 500 mg PO TID 04/22/18 [History] Ferrous Sulfate [Iron (65 MG Elemental)] 325 mg PO MOWEFR 04/22/18 [History] Fluticasone Nasal [place] [Flonase Nasal [place]] 1 spr EA NOSTRIL DAILY 04/22/18 [ History] Losartan Potassium [Cozaar] 100 mg PO DAILY 04/22/18 [History] Magnesium Oxide [Mag-Ox] 400 mg PO DAILY 04/22/18 [History] Metoprolol Tartrate [Lopressor] 50 mg PO BID 04/22/18 [History] cloZAPine [Clozaril] 100 mg PO HS 04/22/18 [History] fluPHENAZine DECANOATE [Prolixin Decanoate] 50 mg IM [id number] 04/22/18 [History] fluvoxaMINE [Luvox] 100 mg PO DAILY 04/22/18 [History] Albuterol Inhaler [Ventolin Hfa Inhaler] 2 puff INHALATION RT-Q4H PRN 08/12/18 [ History] Cholecalciferol [Vitamin D3] 5,000 unit PO DAILY 08/12/18 [History] Sodium Chloride Tab 1 gm PO BID 08/12/18 [History] Aspirin 325 mg PO DAILY tab 08/16/18 [Rx] Famotidine [Pepcid] 20 mg PO BID tab 08/16/18 [Rx] Hydrocodone/Acetaminophen [[place] 5-325] 1 each PO Q6HR PRN #28 tab 08/16/18 [Rx] Polyethylene Glycol 3350 [Miralax] 17 gm PO DAILY PRN powd.pack 08/16/18 [Rx] Sennosides-Docusate Sodium [Senokot-S] 1 each PO BID tab 08/16/18 [Rx] traMADol HCL [Ultram] 50 mg PO BID PRN #6 tablet 08/16/18 [Rx] Follow up Appointment(s)/Referral(s): Moncho Rogers PAC [PHYSICIAN NUT PROCESSING SUPERVISOR] - 2 Weeks (Patient may follow-up with Moncho Rogers PA-C or Dr. Blayne Shannon at [facility] in 2-3 weeks following discharge. ) Ulysses Mauricio MD [Primary Care Provider] - 3 Days Activity/Diet/Wound Care/Special Instructions: PH Medi ECF IS Q1h x 10 WA 1. Patient will remain nonweightbearing on the left lower extremity 2. Patient may apply ice of the left hip for comfort and support as needed 3. Keep dressing over the left hip clean, dry, intact 4. Patient may shower without a dressing intact incision sites remain dry over the next 72 hours 5. Take medications as prescribed CBC, BMP in 3 days Discharge Disposition: TRANSFER TO SNF/ECF
[2018-08-16] MEDS: HYDROmorphone 1 MG/ML 1 ML SYRINGE IVP PRN (15:39)
[2018-08-16 17:09] VITALS: BP 145/96; PULSE 89; RESP 16; TEMP 98.1
--- NOTE | 2018-08-16 20:10 | P.PN ---
Subjective Progress Note Date: 08/15/18 Progress note Being dictated for Dr. Azul. Interval history:Patient is a pleasant 57-year-old female came in after fall and a fracture of the left hip. Patient had multiple syncopal episode without any seizure-like activity. Patient has a syncopal episode lasted a 2 or 3 days. Patient denied any leg patient was comparing of some lightheadedness associated with that. No recent change in medications patient denied any fevers chills nausea vomiting abdominal pain. EKG showed normal sinus rhythm. Echocardiac will be obtained. His low operative risk for surgery. 08/13/2018 Echocardiac M is pending patient will undergo internal fixation of her left hip. No overnight events. 08/14/2018 Patient underwent a closed reduction and fixation of the left hip. Patient is otherwise clinically doing well but the still having some pain no bowel sounds but constipated was started on bowel regimen and echo pending Constitutional: Denied any fatigue denied any fever. Cardio vascular: denied any chest pain, palpitations Gastrointestinal denied any nausea vomiting Pulmonary: Denied any shortness of breath cough Neurologic denied any new focal deficits 08/15/2018 pain improving. Passing flatus, positive bowel movement. Incentive spirometer up to 1500. Complained of increased shortness of breath, d-dimer elevated, chest CTA negative for PE. Echo reporting normal LV function, EF 55- 60%. Denies chest pain, palpitations. Denies lightheadedness or dizziness. Objective - Vital Signs Vital signs: Vital Signs Temp 98.4 F 08/15/18 17:19 Pulse 75 08/15/18 17:19 Resp 16 08/15/18 17:19 BP 117/76 08/15/18 17:19 Pulse Ox 96 08/15/18 17:19 Intake & Output 08/15/18 08/15/18 08/16/18 06:59 18:59 06:59 Intake Total 200 Output Total 1999 1350 Balance -1800 -1350 Intake: Intake, IV Titration 0 Amount Sodium Chloride 0.9% 1, 0 000 ml @ 75 mls/hr IV . [id number] [facility] Rx#:[id number] Oral 200 Output: Urine 1999 1350 Uretheral (Gonzalez) 650 1350 Other: Voiding Method Indwelling Catheter - Exam GENERAL: The patient is alert and oriented x3, not in any acute distress. Well developed, well nourished. HEENT: Pupils are round and equally reacting to light. EOMI. No scleral icterus. No conjunctival pallor. Normocephalic, atraumatic. CARDIOVASCULAR: S1 and S2 present. No murmurs, rubs, or gallops. PULMONARY: Chest is clear to auscultation, no wheezing or crackles. ABDOMEN: Soft, nontender, nondistended, normoactive bowel sounds. No palpable organomegaly. MUSCULOSKELETAL: No joint swelling or deformity. EXTREMITIES: No cyanosis, clubbing, or pedal edema. NEUROLOGICAL: Gross neurological examination did not reveal any focal deficits. SKIN: No rashes. - Labs CBC & Chem 7: 08/15/18 19:07 08/14/18 10:37 Assessment and Plan Assessment: -Syncope: No lightheadedness at this time -Left hip fracture status post open reduction and fixation of the left hip -Hypertension -Seizure disorder -Hypothyroidism -Bipolar disorder -Nicotine use: Counseling was provided -Atelectasis Plan: Continue on current medication regime ,monitoring and symptomatic treatment. Aggressive pulmonary toileting, incentive spirometer reinforced. Pain management/anticoagulation as per surgery .smoking cessation readdressed. Discharge planning in progress for tomorrow to subacute rehab. The impression and plan of care has been dictated as directed. : I performed a history and examination of this patient, discussed the same with the dictator. I agree with the dictator's note ,documented as a scribe. Any additional findings or plans will be noted.
[2018-08-27] MEDS ORDERED: fluPHENAZine DECANOATE 25 MG/ML 5ML MDV IM SCH (09:00)
== END 2018-08-16 17:40 | DRG 481 ==
LOC: EC 11:40 → 3SUR 15:11 → 4SSUR 08-14 07:37 → 3SUR 08-14 07:37 → 4SSUR 08-15 13:24
PROVIDERS: ADMIT Hospitalist; ATTEND Hospitalist
PROC: 0QH706Z Insertion of Intramedullary Internal Fixation Device into Left Upper Femur, Open Approach (ICD-10-PCS; 2018-08-13)
PROC: 0QS7XZZ Reposition Left Upper Femur, External Approach (ICD-10-PCS; principal; 2018-08-13 14:30)
DX: S72.002A Fracture of unspecified part of neck of left femur, initial encounter for closed fracture (principal); J98.11 Atelectasis; Z94.4 Liver transplant status; W18.30XA Fall on same level, unspecified, initial encounter; F31.9 Bipolar disorder, unspecified; F41.0 Panic disorder [episodic paroxysmal anxiety]; G40.909 Epilepsy, unspecified, not intractable, without status epilepticus; I10 Essential (primary) hypertension; J45.909 Unspecified asthma, uncomplicated; M79.7 Fibromyalgia; Z71.6 Tobacco abuse counseling; F17.210 Nicotine dependence, cigarettes, uncomplicated; E03.9 Hypothyroidism, unspecified; Z82.49 Family history of ischemic heart disease and other diseases of the circulatory system; Z85.3 Personal history of malignant neoplasm of breast; Z85.41 Personal history of malignant neoplasm of cervix uteri; Z98.1 Arthrodesis status; Z86.11 Personal history of tuberculosis; Z79.890 Hormone replacement therapy; Z79.899 Other long term (current) drug therapy; R55 Syncope and collapse; M54.9 Dorsalgia, unspecified; G89.29 Other chronic pain; K59.00 Constipation, unspecified
CPT/HCPCS: 36415; 70450; 71045; 71275; 72125; 73502; 80048; 80053; 81003; 82550; 82553; 83735; 84443; 84484; 85025; 85379; 85610; 85730; 88305; 88311; 93005; 93306; 96361; 96374; 96376; 99285

== ENCOUNTER 2019-01-17 09:45 | Inpatient (IN) | payer OTHER ==
[~2019-01-17 09:45] MED LIST: ACETAMINOPHEN TAB 500 MG TAB PO ONE; DEXAMETHASONE SOD PHOSPHATE 10 MG/ML 1 ML VIAL IV ONE; MELOXICAM 7.5 MG TAB PO ONE; MORPHINE SULFATE 4 MG/ML SYRINGE IV PRN; ONDANSETRON 4 MG/2 ML VIAL IVP ONE; ROPIVACAINE 246.25 MG, EPINEPHrine 0.5 MG, KETOROLAC 30 MG, cloNIDine HCL/PF 80 MCG, WA... MISCELLANE ONE; TRANEXAMIC ACID 1,000 MG in SODIUM CHLORIDE 0.9% 100 ML IVPB ONE; ceFAZolin IN SWFI 2 GM/20 ML SYRINGE IVP ONE
[2019-01-17] MEDS ORDERED: LIDOCAINE 1% 20 ML VIAL (10MG/ML) FOR IV START SQ ONE (13:00)
[2019-01-17] MEDS ORDERED: LACTATED RINGERS 1,000 ML IV ONE (13:26)
[2019-01-17] MEDS ORDERED: HYDROmorphone 0.5 MG/0.5 ML SYRINGE IVP PRN (13:47)
[2019-01-17] MEDS ORDERED: NALOXONE 0.4 MG/ML 1 ML VIAL IV PRN (13:47)
[2019-01-17] MEDS ORDERED: MAGNESIUM HYDROXIDE 2,400 MG/10 ML CUP PO PRN (13:47)
[2019-01-17] MEDS ORDERED: HYDROcodone/APAP 5-325MG 1 EACH TAB PO PRN (13:47)
[2019-01-17] MEDS ORDERED: DIAZEPAM 5 MG TAB PO PRN (13:47)
[2019-01-17] MEDS ORDERED: ONDANSETRON 4 MG/2 ML VIAL IVP PRN (13:47)
[2019-01-17] MEDS ORDERED: ePHEDrine SULFATE/0.9% NACL/PF 50 MG/5 ML SYRINGE IV ONE (13:58)
[2019-01-17] MEDS ORDERED: TRANEXAMIC ACID 1,000 MG/10 ML VIAL ONE (13:58)
[2019-01-17] MEDS ORDERED: PHENYLEPHRINE-0.9% NACL SYG 1 MG/10 ML SYRINGE ONE (13:58)
[2019-01-17] MEDS ORDERED: fentaNYL (PF) 50 MCG/ML 2 ML AMP ONE (13:58)
[2019-01-17] MEDS ORDERED: PROPOFOL 10 MG/ML 20 ML VIAL IV ONE (13:58)
[2019-01-17] MEDS ORDERED: HYDROmorphone (PF) 1 MG/ML ONE (13:58)
[2019-01-17] MEDS ORDERED: LIDOCAINE 1% INJ 10MG/ML (20 ML MDV) ONE (13:58)
[2019-01-17] MEDS ORDERED: MIDAZOLAM 2 MG/2 ML VIAL ONE (13:58)
[2019-01-17] MEDS ORDERED: SUCCINYLCHOLINE CHLORIDE 100 MG/5 ML SYR IV ONE (13:58)
[2019-01-17] MEDS ORDERED: SODIUM CHLORIDE 0.9% 100 ML BAG ONE (13:58)
[2019-01-17] MEDS ORDERED: ceFAZolin 3,000 MG in SODIUM CHLORIDE 0.9% IRRIGATIO 3,000 ML IRRIGATION ONE (14:06)
[2019-01-17] MEDS: LACTATED RINGERS 1,000 ML IV SCH ×2 (16:16→19:09)
--- NOTE | 2019-01-17 16:23 | P.OP ---
Date of Procedure: 01/17/19 Preoperative Diagnosis: Failed ORIF left hip Postoperative Diagnosis: Failed ORIF left hip Procedure(s) Performed: Removal of hardware left hip and conversion hemiarthroplasty left hip Implants: Singh and nephew Redapt femoral stem size 15, 240 mm , standard Singh & Nephew tandem unipolar, 46 mm Singh & Nephew tandem unipolar 12/14 taper sleeve, +8 mm All components were press-fit. Anesthesia: spinal Surgeon: Denis Stout Administrative Analyst #1: Oksana Horne Estimated Blood Loss (ml): 300 Pathology: other (Cultures 2, femoral head) Condition: stable Disposition: PACU Indications for Procedure: This is a 58-year-old female that sustained a left hip fracture on 08/12/2018. She subsequently had an open reduction internal fixation with intramedullary hip screw fixation of her left hip on 08/13/2018 by my associate, Dr. Ace Shannon D.O. secondary to her multiple comorbidities as well as mental health issues, her fixation of her left hip has subsequently failed. She was then referred to me for removal of the hardware and placement of a left hip hemiarthroplasty. It was discussed at length with the patient as well as caregivers that there is a high potential for complications from this procedure. The most prominent complications including infection and dislocation. They're aware of this, and informed consent was obtained. Operative Findings: The operative findings are consistent with failed ORIF of left hip with screw cut out of the femoral head. Description of Procedure: Patient was seen and evaluated in the preoperative area, consent was reviewed and the operative site was marked with a skin marker. Patient was then brought to the operating room and given 2 g of Ancef intravenously. A spinal anesthetic was administered by the anesthesia department. Patient was then placed in a lateral decubitus position and held with a [place] hip positioner. The bony prominences were well-padded and an axillary roll was placed. The hip was then prepped and draped in the usual sterile fashion. A universal timeout was then performed which confirmed the patient's name, surgical site, ALLERGIES, and procedure. A standard anterolateral approach the hip was performed. Skin and subcutaneous tissues were sharply incised with an incision centered over the tip of the greater trochanter. The incision was carefully dissected down to the fascia. The fascia was then split in line with skin incision and a Charnley retractor was gently placed. The abductors were then identified, and the anterior one third of the abductors were released off the trochanter and one large sleeve. The proximal femur was exposed by externally rotating the femur. The hip was then gently dislocated. Next, using the appropriate screwdriver the intramedullary hip screw was then removed without incident. Next, using an osteotomy guide, the proximal femur was osteotomized at the appropriate level of the above the lesser trochanter. This bone was then removed. The acetabulum was inspected, and found to have no significant arthrosis. Femoral head was then measured. Attention was then redirected to the femur. Proximal femur was re-exposed and a box osteotome was used to lateralize the proximal femur. A sawmill hand was then used to locate the femoral canal. Sequential reaming was then performed to the appropriate size. The trial head and neck were placed. The hip was then gently reduced. Leg lengths were checked and found to be equal. Hip was then taken through a full range of motion was stable throughout. The hip was then gently dislocated with the aid of a bone hook. The trial head and neck were then removed. The Reamer was then removed. The hip was then copiously irrigated with antibiotic solution with a pulse lavage. Components were then opened and the femoral stem was then impacted into the proximal femur. The trunnion was cleaned and dried, and the femoral head and neck were then impacted. Hip was again gently reduced. Again leg lengths were checked and found to be equal, and the hip was taken through a full range of motion and found to be stable. The hip was again irrigated with pulsatile lavage, then followed by the Irrrisept solution. The abductors were then repaired through drill holes to the bone to the greater trochanter, utilizing #5 Ethibond suture. Next the fascia was repaired with #2 strata fix suture. The subcutaneous tissue was then repaired with 3-0 Vicryl. The subcuticular tissue was then repaired with 3-0 strata fix suture. Skin was then closed with Dermabond tape. A sterile dressing was then applied and the patient was transported to the recovery room in stable condition. Administrative Analyst SHAYLEE Landa was required due to the complexity of surgery the need for skilled contract assistant. She assisted with positioning the patient, draping the patient, retraction during the surgery, and closure of the wound.
[2019-01-17] MEDS: fentaNYL (PF) 50 MCG/ML 2 ML AMP IVP ONE ×2 (16:52→16:57)
[2019-01-17] MEDS: HYDROmorphone 0.5 MG/0.5 ML SYRINGE IVP PRN ×3 (17:18→23:15)
--- NOTE | 2019-01-17 17:46 | XR ---
PROCEDURE: XR Hip Limited LT - 1V DATE AND TIME: 01/17/2019 5:08 PM CLINICAL INDICATION: PHH; Status post hip surgery, assess surgical alignment TECHNIQUE: Department protocol COMPARISON: None FINDINGS: Single AP view shows the left hip prosthesis in anatomic positioning and alignment as seen. Postprocedural changes are noted. Horizontal linear lucency noted across the proximal femoral shaft. IMPRESSION: Postoperative AP view; horizontal linear lucency noted across the proximal femoral shaft.
[2019-01-17] MEDS: SODIUM CHLORIDE 0.9% 1,000 ML IV SCH (17:53)
[2019-01-17 18:14] VITALS: BMI 36.5
[2019-01-17] MEDS: ceFAZolin IN SWFI 2 GM/20 ML SYRINGE IVP SCH (18:25)
[2019-01-17] MEDS ORDERED: SODIUM CHLORIDE 0.9% 500 ML 1,000 ML IV ONE (20:01)
[2019-01-17] MEDS ORDERED: FAMOTIDINE 20 MG TAB PO SCH (21:00)
[2019-01-17] MEDS: SENNOSIDES-DOCUSATE SODIUM 1 EACH TAB PO SCH (21:23)
[2019-01-17] MEDS: HYDROcodone/APAP 5-325MG 1 EACH TAB PO PRN (21:24)
[2019-01-17] MEDS: cloZAPine 25 MG TAB PO SCH (21:54)
[2019-01-17] MEDS: SULFAMETHOX-TMP 800-160MG 1 EACH TAB PO SCH (21:54)
[2019-01-18] MEDS: hydrOXYzine PAMOATE 25 MG CAP PO PRN (00:56)
[2019-01-18] MEDS: ceFAZolin IN SWFI 2 GM/20 ML SYRINGE IVP SCH (02:04)
[2019-01-18] MEDS: HYDROmorphone 1 MG/ML 1 ML SYRINGE IVP PRN ×2 (02:13→23:46)
[2019-01-18] MEDS: SODIUM CHLORIDE 0.9% 1,000 ML IV SCH ×2 (04:31→22:03)
[2019-01-18] MEDS: HYDROcodone/APAP 5-325MG 1 EACH TAB PO PRN ×3 (04:32→20:38)
[2019-01-18] MEDS: MAGNESIUM OXIDE 400 MG TAB PO SCH (07:16)
[2019-01-18] MEDS: MELOXICAM 7.5 MG TAB PO SCH (07:16)
[2019-01-18] MEDS: SULFAMETHOX-TMP 800-160MG 1 EACH TAB PO SCH ×2 (07:17→22:10)
[2019-01-18] MEDS: HYDROmorphone 0.5 MG/0.5 ML SYRINGE IVP PRN ×3 (07:17→16:03)
[2019-01-18] MEDS: RIVAROXABAN 10 MG TAB PO SCH (07:17)
[2019-01-18] MEDS: FAMOTIDINE 20 MG TAB PO SCH (07:17)
[2019-01-18 07:47] LABS: Basophils % (A) 0 %; Eosinophils % (A) 0 %; HCT 23.6 % (34.0-46.0); Lymphocytes # (A) 0.7 k/uL (1.0-4.8); Lymphocytes % (A) 7 %; MCHC 32.3 g/dL (31.0-37.0); MCV 83.6 fL (80.0-100.0); Mean Platelet Volume 6.8; Monocytes # (A) 0.7 k/uL (0-1.0); Monocytes % (A) 6 %; Neutrophils # (A) 9.1 k/uL (1.3-7.7); Neutrophils % (A) 85 %; Platelet Count 210 k/uL (150-450); RBC 2.82 m/uL (3.80-5.40); RDW 13.1 % (11.5-15.5); WBC 10.6 k/uL (3.8-10.6)
[2019-01-18 07:48] LABS: HGB 7.6 gm/dL (11.4-16.0)
--- NOTE | 2019-01-18 09:04 | P.PN ---
Subjective Progress Note Date: 01/18/19 This is a 58-year-old female who is status post removal of hardware and conversion hemiarthroplasty of the left hip. Patient had a previous ORIF with intramedullary hip screw fixation of the left hip on 08/13/2018 which failed due to multiple comorbidities. This is postoperative day #1 and patient is seen and evaluated at bedside with Dr. Denis Stout. Patient states that her pain is well controlled. Patient states that she has not worked with physical therapy yet. Patient does have a legal guardian, but her family is present in the room. Patient denies any dizziness, lightheadedness, fever/chills, numbness, weakness, tingling, abdominal pain, shortness of breath or chest pain. Objective - Vital Signs Vital signs: Vital Signs Temp 99.0 F 01/18/19 06:43 Pulse 108 H 01/18/19 06:43 Resp 14 01/18/19 06:43 BP 105/66 01/18/19 06:43 Pulse Ox 97 01/18/19 06:43 Intake & Output 01/17/19 01/18/19 01/18/19 18:59 06:59 18:59 Intake Total 601 920 420 Output Total 1100 850 Balance -499 70 420 Intake: IV 601 Intake, IV Titration 920 Amount Sodium Chloride 0.9% 1, 420 000 ml @ 70 mls/hr IV . [id number] [facility] Rx#:[id number] Sodium Chloride 0.9% 500 500 ml 1,000 ml @ 999 mls/hr IV .Q1H1M ONE Rx#: [id number] Oral 420 Output: Urine 800 850 Estimated Blood Loss 300 Other: Voiding Method Indwelling Catheter - Exam Vital signs are stable. Patient is in no acute distress and is alert and oriented 3. Calf is soft and nontender to palpation. Dressing is clean, dry, and intact. Patient has full foot and ankle motion without pain or difficulty. Neurovascular status and circulatory status are intact. - Labs CBC & Chem 7: 01/18/19 06:59 Labs: Abnormal Lab Results - Last 24 Hours (Table) 01/18/19 Range/Units 06:59 RBC 2.82 L (3.80-5.40) m/uL Hgb 7.6 L D (11.4-16.0) gm/dL Hct 23.6 L (34.0-46.0) % Neutrophils # 9.1 H (1.3-7.7) k/uL Lymphocytes # 0.7 L (1.0-4.8) k/uL Microbiology - Last 24 Hours (Table) 01/17/19 15:55 Gram Stain - Preliminary Hip - Left Wound Culture - Preliminary 01/17/19 15:55 Gram Stain - Preliminary Hip - Left Wound Culture - Preliminary 01/17/19 15:55 Anaerobic Culture - Preliminary Hip - Left 01/17/19 15:55 Anaerobic Culture - Preliminary Hip - Left Assessment and Plan Assessment: Status post removal of hardware and conversion hemiarthroplasty of the left hip. Failure of previous ORIF left hip. Asthma Fibromyalgia Hypertension Seizure disorder Hypothyroidism Bipolar disorder Plan: Continue routine postop care and pain control. Continue hip precautions with abductor pillow. Continue anticoagulation with Xarelto. Weightbearing as tolerated with a walker. Leave dressing in place for 10 days. Appreciate input from medicine. Patient's Hgb is 7.6. Anticipate discharge back to [facility] in the next 24-48 hours.
--- NOTE | 2019-01-18 16:30 | PN ---
PROGRESS NOTE CHIEF COMPLAINT: Status post removal of left hip prosthesis and hemiarthroplasty. HISTORY OF PRESENT ILLNESS: This lady is doing well. She is awake and alert. She has not had any problems. The vital signs are normal. Hemoglobin is slightly low at 7.6. PHYSICAL EXAM: She is slightly pale. Chest is clear. Cardiac exam is normal. Abdomen is soft, nontender and extremities are normal and neurological is intact. IMPRESSION: Status post removal left hip with hemiarthroplasty. PLAN: No new change in program. Her hemoglobin will have to be watched. MMODL / IJN: [id number] /
--- NOTE | 2019-01-18 17:12 | CONS ---
CONSULTATION . HISTORY OF PRESENT ILLNESS: This lady is admitted from [facility]. She has had a left hip replacement, which did not go well and she has come back in for a revision. She has a psychiatric disorder, but has otherwise been in good health. REVIEW OF SYSTEMS: She denies headaches, neurologic problems, chest pain, shortness of breath, abdominal pain, melena, hematochezia, urinary complaints, diabetes, etc. Past medical history, family history and personal and social histories are otherwise unremarkable and noncontributory and found in detail in her admitting summary or from the documents from the [facility]. PHYSICAL EXAMINATION: Blood pressure is 145/74 with this pulse of 68, respirations 19 and she is afebrile. In general, she appeared to be slightly overweight, white, slightly pale and in no acute distress. Skin color is normal skin is warm, dry. Lymph nodes not enlarged. Head, ears, eyes, nose, mouth, and throat were normal. Neck veins not distended. Thyroid not enlarged. Chest is clear. Cardiac exam is normal. Abdomen is soft, nontender. Extremities are normal. IMPRESSION: 1. Difficulty with the left hip prosthesis. 2. Schizophrenia. RECOMMENDATIONS: None. She is cleared for surgery. MMODL / IJN: [id number] /
[2019-01-18] MEDS ORDERED: SENNOSIDES-DOCUSATE SODIUM 1 EACH TAB PO SCH (21:00)
[2019-01-18] MEDS: ALBUTEROL NEBULIZED 2.5 MG/3 ML INHALATION PRN (21:13)
[2019-01-18] MEDS: LACTATED RINGERS 1,000 ML IV SCH (22:04)
[2019-01-18] MEDS: SENNOSIDES-DOCUSATE SODIUM 1 EACH TAB PO SCH (22:09)
[2019-01-18] MEDS: cloZAPine 25 MG TAB PO SCH (22:10)
[2019-01-19 00:45] VITALS: RESP 16
[2019-01-19] MEDS: HYDROcodone/APAP 5-325MG 1 EACH TAB PO PRN ×2 (01:41→08:28)
[2019-01-19] MEDS: ALBUTEROL NEBULIZED 2.5 MG/3 ML INHALATION PRN ×3 (03:15→12:21)
[2019-01-19] MEDS: HYDROmorphone 1 MG/ML 1 ML SYRINGE IVP PRN ×2 (03:34→06:22)
[2019-01-19] MEDS: hydrOXYzine PAMOATE 25 MG CAP PO PRN ×4 (05:27→22:13)
--- NOTE | 2019-01-19 08:20 | P.PN ---
Subjective Progress Note Date: 01/19/19 This is a 58-year-old female who is status post removal of hardware and conversion hemiarthroplasty of the left hip. Patient had a previous ORIF with intramedullary hip screw fixation of the left hip on 08/13/2018 which failed due to multiple comorbidities. This is postoperative day #2. Patient states that she has been up with physical therapy, but this was difficult. Patient denies any dizziness, lightheadedness, fever/chills, numbness, weakness, tingling, abdominal pain, shortness of breath or chest pain. Objective - Vital Signs Vital signs: Vital Signs Temp 98.2 F 01/19/19 00:19 Pulse 97 01/19/19 03:25 Resp 16 01/19/19 00:19 BP 121/73 01/19/19 00:19 Pulse Ox 97 01/19/19 00:19 Intake & Output 01/18/19 01/19/19 01/19/19 18:59 06:59 18:59 Intake Total 1940 420 Output Total 1000 3600 Balance 940 -3180 Intake: Intake, IV Titration 560 420 Amount Sodium Chloride 0.9% 1, 560 420 000 ml @ 70 mls/hr IV . [id number] [facility] Rx#:[id number] Oral 1380 Output: Urine 1000 3600 Other: Voiding Method Indwelling Catheter Indwelling Catheter - Exam Vital signs are stable. Patient is in no acute distress and is alert and oriented 3. Calf is soft and nontender to palpation. Dressing is clean, dry, and intact. Patient has full foot and ankle motion without pain or difficulty. Neurovascular status and circulatory status are intact. - Labs CBC & Chem 7: 01/18/19 06:59 Labs: Abnormal Lab Results - Last 24 Hours (Table) 01/18/19 Range/Units 22:46 D-Dimer 0.66 H (<0.60) mg/L FEU Microbiology - Last 24 Hours (Table) 01/17/19 15:55 Gram Stain - Preliminary Hip - Left Wound Culture - Preliminary 01/17/19 15:55 Gram Stain - Preliminary Hip - Left Wound Culture - Preliminary Assessment and Plan Assessment: Status post removal of hardware and conversion hemiarthroplasty of the left hip. Failure of previous ORIF left hip. Asthma Fibromyalgia Hypertension Seizure disorder Hypothyroidism Schizophrenia Plan: Continue routine postop care and pain control. Continue hip precautions with abductor pillow. Continue anticoagulation with Xarelto. Weightbearing as tolerated with a walker. Leave dressing in place for 10 days. Appreciate input from medicine. Awaiting repeat CBC. Anticipate discharge back to [facility] in the next 24-48 hours.
[2019-01-19] MEDS: METOPROLOL TARTRATE 50 MG TAB PO SCH ×2 (08:46→20:37)
[2019-01-19] MEDS: FAMOTIDINE 20 MG TAB PO SCH (08:50)
[2019-01-19] MEDS: MELOXICAM 7.5 MG TAB PO SCH (08:50)
[2019-01-19] MEDS: SULFAMETHOX-TMP 800-160MG 1 EACH TAB PO SCH ×2 (08:50→20:37)
[2019-01-19] MEDS: RIVAROXABAN 10 MG TAB PO SCH (08:50)
[2019-01-19] MEDS: MAGNESIUM OXIDE 400 MG TAB PO SCH (08:50)
[2019-01-19] MEDS: SODIUM CHLORIDE 0.9% 1,000 ML IV SCH ×2 (08:56→22:14)
[2019-01-19] MEDS: HYDROcodone/APAP 7.5-325MG 1 EACH TAB PO PRN ×3 (13:31→19:41)
--- NOTE | 2019-01-19 15:16 | PN ---
PROGRESS NOTE CHIEF COMPLAINT: Status post left hip replacement. HISTORY OF PRESENT ILLNESS: This lady during the night ran into difficulty with tachycardia and some shortness of breath. She is also complaining of some chest pain. Studies of her pain were unremarkable. Her troponin was normal and D-dimer is up slightly, but it was felt to be related to her surgery. Blood pressure rachel and she went into AFib with RVR, but all these subsided with increased fluids and appropriate IV medication for her blood pressure. MMODL / IJN: [id number] /
[2019-01-19] MEDS: SENNOSIDES-DOCUSATE SODIUM 1 EACH TAB PO SCH (20:37)
[2019-01-19] MEDS ORDERED: cloZAPine 25 MG TAB PO SCH (21:00)
[2019-01-19] MEDS: LACTATED RINGERS 1,000 ML IV SCH (22:09)
[2019-01-20] MEDS: HYDROcodone/APAP 7.5-325MG 1 EACH TAB PO PRN ×3 (01:58→14:36)
[2019-01-20] MEDS: hydrOXYzine PAMOATE 25 MG CAP PO PRN ×2 (05:26→14:06)
[2019-01-20 07:46] VITALS: BP 110/70; PULSE 86; TEMP 98.1
[2019-01-20] MEDS: FAMOTIDINE 20 MG TAB PO SCH (08:10)
[2019-01-20] MEDS: RIVAROXABAN 10 MG TAB PO SCH (08:10)
[2019-01-20] MEDS: MELOXICAM 7.5 MG TAB PO SCH (08:10)
[2019-01-20] MEDS: MAGNESIUM OXIDE 400 MG TAB PO SCH (08:10)
[2019-01-20] MEDS: METOPROLOL TARTRATE 50 MG TAB PO SCH (08:11)
[2019-01-20 08:20] LABS: Basophils % (A) 1 %; Eosinophils # (A) 0.2 k/uL (0-0.7); Eosinophils % (A) 3 %; HCT 23.3 % (34.0-46.0); HGB 7.2 gm/dL (11.4-16.0); Lymphocytes # (A) 2.4 k/uL (1.0-4.8); Lymphocytes % (A) 32 %; MCH 26.7 pg (25.0-35.0); MCHC 30.9 g/dL (31.0-37.0); MCV 86.5 fL (80.0-100.0); Mean Platelet Volume 6.7; Monocytes # (A) 0.5 k/uL (0-1.0); Monocytes % (A) 7 %; Neutrophils # (A) 4.1 k/uL (1.3-7.7); Neutrophils % (A) 55 %; Platelet Count 201 k/uL (150-450); RBC 2.69 m/uL (3.80-5.40); RDW 13.6 % (11.5-15.5); WBC 7.5 k/uL (3.8-10.6)
--- NOTE | 2019-01-20 08:26 | P.PN ---
Subjective Progress Note Date: 01/20/19 This is a 58-year-old female who is status post removal of hardware and conversion hemiarthroplasty of the left hip. Patient had a previous ORIF with intramedullary hip screw fixation of the left hip on 08/13/2018 which failed due to multiple comorbidities. This is postoperative day #3. Patient had an episode of A. fib with RVR yesterday. This was resolved with fluids and blood pressure control. Patient is stable today. Patient states that she has been working with physical therapy. Patient denies any dizziness, lightheadedness, fever/chills, numbness, weakness, tingling, abdominal pain, shortness of breath or chest pain. Objective - Vital Signs Vital signs: Vital Signs Temp 98.1 F 01/20/19 07:15 Pulse 86 01/20/19 07:54 Resp 16 01/20/19 07:54 BP 110/70 01/20/19 07:15 Pulse Ox 97 01/20/19 07:15 Intake & Output 01/19/19 01/20/19 01/20/19 18:59 06:59 18:59 Intake Total 1096 200 Output Total 1600 3950 100 Balance -504 -3750 -100 Intake: Oral 1096 200 Output: Urine 1600 3950 100 Other: Voiding Method Indwelling Catheter Indwelling Catheter Indwelling Catheter - Exam Vital signs are stable. Patient is in no acute distress and is alert and orient ed 3. Calf is soft and nontender to palpation. Dressing is clean, dry, and intact. Patient has full foot and ankle motion without pain or difficulty. Neurovascular status and circulatory status are intact. - Labs CBC & Chem 7: 01/18/19 06:59 Labs: Microbiology - Last 24 Hours (Table) 01/17/19 15:55 Gram Stain - Final Hip - Left Wound Culture - Final 01/17/19 15:55 Gram Stain - Final Hip - Left Wound Culture - Final 01/17/19 15:55 Anaerobic Culture - Preliminary Hip - Left 01/17/19 15:55 Anaerobic Culture - Preliminary Hip - Left Assessment and Plan Assessment: Status post removal of hardware and conversion hemiarthroplasty of the left hip. Failure of previous ORIF left hip. Asthma Fibromyalgia Hypertension Seizure disorder Hypothyroidism Schizophrenia Plan: Continue routine postop care and pain control. Continue hip precautions with abductor pillow. Continue anticoagulation with Xarelto. Weightbearing as tolerated with a walker. Leave dressing in place for 10 days. Appreciate input from medicine. Awaiting repeat CBC. Anticipate discharge back to [facility] in the next 24-48 hours.
--- NOTE | 2019-01-20 08:38 | P.DS ---
Providers Date of admission: 01/17/19 09:45 Expected date of discharge: 01/20/19 Attending physician: Denis Stout Consults: 01/17/19 13:47 Consult Physician Routine Consulting Provider: Ulysses Mauricio Consult Reason/Comments: medical management Do you want consulting provider notified?: Yes Primary care physician: Ulysses Mauricio - Discharge Diagnosis(es) (1) S/P hip hemiarthroplasty Current Visit: Yes Status: Acute Hospital Course: This is a 58-year-old female who had an ORIF the left hip on 08/13/[address] Shannon. The patient presented for outpatient evaluation and x-ray showed failure of ORIF left hip due to multiple comorbidities. After discussion and consideration patient elects to proceed with removal of hardware and conversion hemiarthroplasty of the left hip. The patient is seen preoperatively by Dr. Stout and medically cleared for surgery by their primary care physician. Patient is admitted to [facility] on 01/17/2019 for removal of hardware and conversion hemiarthroplasty of the left hip. The procedures performed wi thout complication or sequelae. The patient is doing well postoperatively. Labs and vital signs are stable on day of discharge. On day of discharge patient's hip incision is healing well. There is minimal erythema. There is no drainage noted at this time. There is minimal soft tissue swelling to the hip and thigh. Patient has full foot and ankle motion without difficulty or pain. Calf is soft and nontender to palpation. Neurovascular status to the left lower extremity is intact. Patient is discharged to rehab in good condition. Opioid start talking form is reviewed and signed at patient bedside. Please see med rec for accurate list of home medications. Plan - Discharge Summary Discharge Rx Participant: No New Discharge Prescriptions: New HYDROcodone/APAP 7.5-325MG [[place] 7.5-325] 1 - 2 tab PO Q6H PRN #56 tab PRN Reason: Pain Sennosides [Senokot] 1 tab PO BID #60 tablet Rivaroxaban [Xarelto] 10 mg PO DAILY #32 tab No Action Metoprolol Tartrate [Lopressor] 50 mg PO BID Magnesium Oxide [Mag-Ox] 400 mg PO DAILY Acetaminophen Tab [Tylenol] 500 mg PO TID fluvoxaMINE [Luvox] 100 mg PO DAILY Ferrous Sulfate [Iron (65 MG Elemental)] 325 mg PO MOWEFR fluPHENAZine DECANOATE [Prolixin Decanoate] 2 ml IM MO Losartan Potassium [Cozaar] 100 mg PO DAILY Sodium Chloride Tab 1 gm PO BID Cholecalciferol [Vitamin D3] 5,000 unit PO DAILY Albuterol Inhaler [Ventolin Hfa Inhaler] 2 puff INHALATION RT-Q4H PRN PRN Reason: Shortness Of Breath Aspirin 325 mg PO DAILY tab Famotidine [Pepcid] 20 mg PO BID tab cloZAPine [Clozaril] 50 mg PO HS Hydrocodone/Acetaminophen [[place] 5-325] 1 tab PO QID hydrOXYzine HCL [Atarax] 50 mg PO QID Sulfamethoxazole/Trimethoprim [Bactrim DS 800-160 mg] 1 tab PO BID Sennosides-Docusate Sodium [Senokot-S] 1 tab PO BID Discharge Medication List Acetaminophen Tab [Tylenol] 500 mg PO TID 04/22/18 [History] Ferrous Sulfate [Iron (65 MG Elemental)] 325 mg PO MOWEFR 04/22/18 [History] Losartan Potassium [Cozaar] 100 mg PO DAILY 04/22/18 [History] Magnesium Oxide [Mag-Ox] 400 mg PO DAILY 04/22/18 [History] Metoprolol Tartrate [Lopressor] 50 mg PO BID 04/22/18 [History] fluPHENAZine DECANOATE [Prolixin Decanoate] 2 ml IM MO 04/22/18 [History] fluvoxaMINE [Luvox] 100 mg PO DAILY 04/22/18 [History] Albuterol Inhaler [Ventolin Hfa Inhaler] 2 puff INHALATION RT-Q4H PRN 08/12/18 [History] Cholecalciferol [Vitamin D3] 5,000 unit PO DAILY 08/12/18 [History] Sodium Chloride Tab 1 gm PO BID 08/12/18 [History] Aspirin 325 mg PO DAILY tab 08/16/18 [Rx] Famotidine [Pepcid] 20 mg PO BID tab 08/16/18 [Rx] Hydrocodone/Acetaminophen [Granby 5-325] 1 tab PO QID 01/11/19 [History] cloZAPine [Clozaril] 50 mg PO HS 01/11/19 [History] hydrOXYzine HCL [Atarax] 50 mg PO QID 01/11/19 [History] Sennosides-Docusate Sodium [Senokot-S] 1 tab PO BID 01/17/19 [History] Sulfamethoxazole/Trimethoprim [Bactrim DS 800-160 mg] 1 tab PO BID 01/17/19 [History] HYDROcodone/APAP 7.5-325MG [Granby 7.5-325] 1 - 2 tab PO Q6H PRN #56 tab 01/20/19 [Rx] Rivaroxaban [Xarelto] 10 mg PO DAILY #32 tab 01/20/19 [Rx] Sennosides [Senokot] 1 tab PO BID #60 tablet 01/20/19 [Rx] Follow up Appointment(s)/Referral(s): Roxi Brar, [NON-STAFF] - As Needed Denis Stout DO [Doctor of Osteopathic Medicine] - 2 Weeks Activity/Diet/Wound Care/Special Instructions: Weightbearing as tolerated with walker. Leave dressing intact. Dressing may be removed by home care nurse or by patient in 10 days. May shower with dressing on. Continue use of abductor pillow when in bed for 6 weeks. Please follow-up with [facility] in 2 weeks and call with any questions or concerns, . Discharge Disposition: TRANSFER TO SNF/ECF
[2019-01-20] MEDS: SULFAMETHOX-TMP 800-160MG 1 EACH TAB PO SCH (09:51)
[2019-01-20] MEDS: SODIUM CHLORIDE 0.9% 1,000 ML IV SCH (09:59)
--- NOTE | 2019-01-21 16:30 | PN ---
PROGRESS NOTE DATE OF SERVICE: 01/20/2019. CHIEF COMPLAINT: Status post revision of left hip and anemia. HISTORY OF PRESENT ILLNESS: This lady is a doing fairly well. May be going back to the correction today. PHYSICAL EXAM: Chest is clear. Cardiac exam is unremarkable. Abdomen is soft, nontender. IMPRESSION: 1. Status post removal of left hip prosthesis with hemiarthroplasty. 2. Schizophrenia. 3. Anemia. PLAN: She may be going back to the correction today. MMODL / IJN: [id number] /
--- NOTE | 2019-01-23 16:19 | CDI ---
Documentation Clarification Form Date: 01/23/19 From: Debby Santillan Phone: If you have a question regarding this query, please contact Mili Adams at [phone] between 8am and 5pm. Admit Date: 01/17/2019 9:45:00 AM Patient Name: Tania Baugh Visit Number: [id number] Discharge Date: 01/20/2019 5:08:00 PM ATTENTION: The Clinical Documentation Specialists (CDI) and [facility] Coding Staff appreciate your assistance in clarifying documentation. Please respond to the clarification below the line at the bottom and electronically sign. The CDI & [facility] Coding staff will review the response and follow-up if needed. Please note: Queries are made part of the Legal Health Record. If you have any questions, please contact the author of this message via ITS. Dr. Ulysses Mauricio Atrial Fibrillation is documented in your 01/19 progress note and in Dr[address] Stout's 01/20 progress note. History/Risk Factors: Patient was admitted for mechanical breakdown of previous ORIF of the left hip. The patient had a conversion hemiarthroplasty and removal of old hardware. The patient has a history of hypertension, hypothyroidism and asthma. Clinical Indicators: Tachycardia and shortness of breath. EKG/telemetry: Normal sinus rhythm, low voltage QRS, nonspecific T wave abnormality, abnormal EKG. Treatment: Per your progress note the afib subsided with increased fluids and appropriated IV medication for her blood pressure. In your professional opinion, can you please clarify the type of Atrial Fibrillation, if known? Chronic/Permanent Paroxysmal Persistent Other, please specify Unable to determine MTDD
--- NOTE | 2019-01-27 23:35 | MISC ---
MISCELLANOUS REPORT Unable to determine. MMODL / IJN: [id number] /
== END 2019-01-20 17:08 | DRG 470 ==
LOC: 2ORMAIN 09:45 → 4SSUR 17:08
PROVIDERS: ADMIT Orthopaedic Surgery; ATTEND Orthopaedic Surgery
PROC: 0SPB04Z Removal of Internal Fixation Device from Left Hip Joint, Open Approach (ICD-10-PCS; 2019-01-17)
PROC: 0SRS0JA Replacement of Left Hip Joint, Femoral Surface with Synthetic Substitute, Uncemented, Open Approach (ICD-10-PCS; principal; 2019-01-17 13:40)
DX: T84.115A Breakdown (mechanical) of internal fixation device of left femur, initial encounter (principal); Z94.4 Liver transplant status; F20.9 Schizophrenia, unspecified; I48.91 Unspecified atrial fibrillation; D64.9 Anemia, unspecified; E03.9 Hypothyroidism, unspecified; F31.9 Bipolar disorder, unspecified; G40.909 Epilepsy, unspecified, not intractable, without status epilepticus; I10 Essential (primary) hypertension; J45.909 Unspecified asthma, uncomplicated; M79.7 Fibromyalgia; F17.200 Nicotine dependence, unspecified, uncomplicated; K21.9 Gastro-esophageal reflux disease without esophagitis; Z79.899 Other long term (current) drug therapy; Y83.8 Other surgical procedures as the cause of abnormal reaction of the patient, or of later complication, without mention of misadventure at the time of the procedure
CPT/HCPCS: 73501; 84484; 85025; 85379; 86850; 86900; 86901; 87070; 87075; 87205; 88305; 88311; 93005; 94640

== ENCOUNTER → 2022-07-20 | Outpatient (CLI) | payer OTHER ==
--- NOTE | 2022-07-20 12:50 | CT ---
EXAMINATION TYPE: CT lumbar spine wo con DATE OF EXAM: 07/20/2022 COMPARISON: None HISTORY: chronic low back pain CT DLP: 2549.6 mGycm CONTRAST: None TECHNIQUE: CT of the lumbar spine is performed on a spiral scan at 3 mm thick sections. Reconstructed images are performed in the coronal and sagittal planes. FINDINGS: Pedicle screws and fixation rods are present through the L1-L4 lumbar spine. Large anterior vertebral body spurring is present L5-S1. Straightening of the lumbar spine sagittal plane. It is li mitation to portions of the exam due to beam hardening artifact fixation pedicle screws and rods. T12-L1: No focal disc herniation or significant disc bulge is evident. No spinal canal stenosis or neural foraminal stenosis is present. L1-L2: No focal disc herniation or significant disc bulge is evident. No spinal canal stenosis or n eural foraminal stenosis is present L2-L3: No focal disc herniation or significant disc bulge is evident. No spinal canal stenosis or n eural foraminal stenosis is present L3-L4: No focal disc herniation or significant disc bulge is evident. No spinal canal stenosis or n eural foraminal stenosis is present L4-L5: Advanced facet degenerative changes present L4-5. Significant hypertrophy however is not evide nt. Disc bulging is present which in conjunction with facet hypertrophy as contributing to spinal can al stenosis at the L4-5 level. L5-S1: Facet hypertrophy is present contributing to lateral recess stenosis at this level. Degenerati ve disc changes with loss of disc height and vacuum disc phenomenon is present. AP spinal canal steno sis is not present. IMPRESSION: 1. Spinal canal stenosis due to broad-based disc bulging and advanced facet degenerative changes L4-5 . 2. Lateral recess stenosis L5-S1 secondary to facet hypertrophy
== END | disposition home or self-care (01) ==
LOC: RADCTMAIN 10:00
PROVIDERS: ATTEND Psychiatry & Neurology Neurology
DX: M47.816 Spondylosis without myelopathy or radiculopathy, lumbar region (principal); M51.27 Other intervertebral disc displacement, lumbosacral region; M48.061 Spinal stenosis, lumbar region without neurogenic claudication
CPT/HCPCS: 72131

== ENCOUNTER 2025-03-05 15:10 | Emergency (ER) | payer OTHER ==
--- NOTE | 2025-03-05 15:43 | ED ---
General Adult HPI - General Chief complaint: Shortness of Breath Stated complaint: SOB Time Seen by Provider: 03/05/25 15:15 Source: patient, EMS, RN notes reviewed, old records reviewed Mode of arrival: EMS - History of Present Illness Initial comments: Is a 64-year-old female who presents to the emergency department from the assisted patient states she has had some difficulty breathing so they sent her to the emergency department according to EMS she was desatting at the facility so they sent her in. Patient states she is not on oxygen normally. Patient denies any significant cough. Patient denies chest pain or palpitations. Patient states she does not think she has had a fever. Patient denies any abdominal pain patient denies nausea vomiting. Patient denies any history of congestive heart failure. - Related Data Home Medications Medication Instructions Recorded Confirmed Ferrous Sulfate [Iron (65 MG 325 mg PO DAILY 04/22/18 03/05/25 Elemental)] Losartan Potassium [Cozaar] 100 mg PO DAILY 04/22/18 03/05/25 Magnesium Oxide [Mag-Ox] 400 mg PO DAILY 04/22/18 03/05/25 Sennosides-Docusate Sodium 1 tab PO BID 01/17/19 03/05/25 [Senokot-S] Acetaminophen [Tylenol 8 Hour] 650 mg PO TID 03/05/25 03/05/25 Albuterol Nebulized [Ventolin 2.5 mg INHALATION RT-Q8H 03/05/25 03/05/25 Nebulized] Loratadine [Claritin] 10 mg PO HS 03/05/25 03/05/25 Naloxone HCl [Narcan] 4 mg NASAL ONCE PRN 03/05/25 03/05/25 Potassium Chloride [Klor-Con M10] 10 meq PO HS 03/05/25 03/05/25 Pregabalin [Lyrica] 50 mg PO TID 03/05/25 03/05/25 Psyllium Husk (with Sugar) 1 tsp PO HS 03/05/25 03/05/25 [Metamucil Powder] cloZAPine [Clozaril] 100 mg PO TID 03/05/25 03/05/25 fluPHENAZine HCl 2.5 mg PO DAILY 03/05/25 03/05/25 fluPHENAZine [Prolixin 5MG] 5 mg PO HS 03/05/25 03/05/25 traMADol HCL 100 mg PO Q12H PRN 03/05/25 03/05/25 Previous Rx's Medication Instructions Recorded Nitrofurantoin Monohyd/M-Cryst 100 mg PO Q12HR #14 cap 03/05/25 [Macrobid] Allergies Allergy/AdvReac Type Severity Reaction Status Date / Time haloperidol [From Haldol] Allergy Anaphylaxis Verified 03/05/25 16:47 haloperidol lactate Allergy Anaphylaxis Verified 03/05/25 16:47 [From Haldol] iodine Allergy Anaphylaxis Verified 03/05/25 16:47 Review of Systems ROS Statement: Those systems with pertinent positive or pertinent negative responses have been documented in the HPI. ROS Other: All systems not noted in ROS Statement are negative. 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 History of Any Multi-Drug Resistant Organisms: None Reported Past Surgical History: Appendectomy, Orthopedic Surgery Additional Past Surgical History / Comment(s): exp lap, liver transplant in 1987, lumbar fusion in 1991, right breast lumpectomy Past Anesthesia/Blood Transfusion Reactions: No Reported Reaction Past Psychological History: Anxiety, Bipolar, Depression, Panic Disorder Smoking Status: Light tobacco smoker Past Alcohol Use History: Rare Past Drug Use History: None Reported - Past Family History Father Family Medical History: Myocardial Infarction (MT) Additional Family Medical History / Comment(s): Father in his 90s from a myocardial infarction. Mother Family Medical History: Unable to Obtain Additional Family Medical History / Comment(s): no hx at F Brother(s) Additional Family Medical History / Comment(s): Patient has 5 brothers and 1 sister with no major medical problems. Patient does not have any children. General Exam - General Exam Comments Initial Comments: GENERAL: Patient is well-developed and well-nourished. Patient is nontoxic and well- hydrated and is in mild distress. ENT: Neck is soft and supple. No significant lymphadenopathy is noted. Oropharynx is clear. Moist mucous membranes. Neck has full range of motion without eliciting any pain. EYES: The sclera were anicteric and conjunctiva were pink and moist. Extraocular movements were intact and pupils were equal round and reactive to light. Eyelids were unremarkable. PULMONARY: Unlabored respirations. Good breath sounds bilaterally. Crackles in the left base with some rhonchi in the right base and a little wheezing CARDIOVASCULAR: There is a regular rate and rhythm without any murmurs gallops or rubs. ABDOMEN: Soft and nontender with normal bowel sounds. SKIN: Skin is clear with no lesions or rashes and otherwise unremarkable. NEUROLOGIC: Patient is alert and oriented x3. Cranial nerves II through XII are grossly intact. Motor and sensory are also intact. Normal speech, volume and content. Symmetrical smile. MUSCULOSKELETAL: Normal extremities with adequate strength and full range of motion. LYMPHATICS: No significant lymphadenopathy is noted PSYCHIATRIC: Normal psychiatric evaluation. Course Vital Signs 03/05/25 03/05/25 03/05/25 15:12 16:39 16:45 Temperature 98.3 F Pulse Rate 93 90 92 Respiratory 15 18 18 Rate Blood Pressure 117/71 105/35 100/53 O2 Sat by Pulse 97 93 L 94 L Oximetry 03/05/25 03/05/25 03/05/25 17:20 18:45 19:45 Temperature 98.4 F Pulse Rate 90 90 78 Respiratory 17 19 18 Rate Blood Pressure 108/70 118/71 119/95 O2 Sat by Pulse 95 93 L 96 Oximetry Medical Decision Making - Medical Decision Making EKG is interpreted by myself EKG shows a sinus rhythm at 92 bpm. AK interval is 186 QRS is 84 QT interval 351 QTc is 400. Patient's EKG shows no ST segment elevation or depression Was pt. sent in by a medical professional or institution (, PA, SECURITY ALARM INSTALLER, urgent care, hospital, or assisted...) When possible be specific @ -No Did you speak to anyone other than the patient for history (EMS, parent, family, police, friend...)? What history was obtained from this source @ -No Did you review nursing and triage notes (agree or disagree)? Why? @ -I reviewed and agree with nursing and triage notes Were old charts reviewed (outside hosp., previous admission, EMS record, old EKG, old radiological studies, urgent care reports/EKG's, assisted records)? Report findings @ -No old charts were reviewed Differential Diagnosis? @ -Differential Dyspnea: Coronary syndrome, arrhythmia, tamponade, asthma, COPD, pulmonary embolism, pneumonia, pneumothorax, pulmonary effusion, anaphylaxis, diabetic ketoacidosis, flailed chest, pulmonary contusion, diaphragmatic rupture, anemia, neuromuscular, this is not meant to be an all-inclusive list. EKG interpreted by me (3pts min.). @ -As above X-rays interpreted by me (1pt min.). @ -Chest x-ray shows no acute abnormality. Pelvis x-ray and hip x-ray showed no acute abnormality CT interpreted by me (1pt min.). @ -None done U/S interpreted by me (1pt. min.). @ -None done What testing was considered but not performed or refused? (CT, X-rays, U/S, labs)? Why? @ -None What meds were considered but not given or refused? Why? @ -None Did you discuss the management of the patient with other professionals (professionals i.e. , PA, SECURITY ALARM INSTALLER, lab, RT, psych nurse, executive secretary social welfare, steam room attendant, teacher, community reinvestment act officer, case management associate)? Give summary @ -No Was smoking cessation discussed for >3mins.? @ -No Was critical care preformed (if so, how long)? @ -No Were there social determinants of health that impacted care today? How? (Homelessness, low income, unemployed, alcoholism, drug addiction, transportation, low edu. Level, literacy, decrease access to med. care, custodial, rehab)? @ -No Was there de-escalation of care discussed even if they declined (Discuss DNR or withdrawal of care, Hospice)? DNR status @ -No What co-morbidities impacted this encounter? (DM, HTN, Smoking, COPD, CAD, Cancer, CVA, ARF, Chemo, Hep., AIDS, mental health diagnosis, sleep apnea, morbid obesity)? @ -None Was patient admitted / discharged? Hospital course, mention meds given and route, prescriptions, significant lab abnormalities, going to OR and other pertinent info. @ -Patient was oxygenating in the mid 90s the whole time in the emergency department on room air. Lab work was all within normal range. Patient had no other focal complaints patient will be discharged home Undiagnosed new problem with uncertain prognosis? @ -No Drug Therapy requiring intensive monitoring for toxicity (Heparin, Nitro, Insulin, Cardizem)? @ -No Were any procedures done? @ -No Diagnosis/symptom? @ -Dyspnea Acute, or Chronic, or Acute on Chronic? @ -Acute Uncomplicated (without systemic symptoms) or Complicated (systemic symptoms)? @ -Complicated Side effects of treatment? @ -No Exacerbation, Progression, or Severe Exacerbation? @ -No Poses a threat to life or bodily function? How? (Chest pain, [place], [place], pneumonia, PE, COPD, DKA, ARF, appy, cholecystitis, CVA, Diverticulitis, Homicidal, Suicidal, threat to staff... and all critical care pts) @ -No Diagnosis/symptom? @ -Urinary tract infection Acute, or Chronic, or Acute on Chronic? @ -Acute Uncomplicated (without systemic symptoms) or Complicated (systemic symptoms)? @ -Acute uncomplicated Side effects of treatment? @ -None Exacerbation, Progression, or Severe Exacerbation] @ -No Poses a threat to life or bodily function? @ -No - Lab Data Result diagrams: 03/05/25 15:31 03/05/25 15:31 Lab Results 03/05/25 03/05/25 03/05/25 Range/Units 15:31 15:31 15:31 WBC 9.86 (4.50-10.00) 10*3/uL RBC 3.93 L (4.10-5.20) 10*6/uL Hgb 11.6 L (12.0-15.0) g/dL Hct 34.6 L (37.2-46.3) % MCV 88.0 (80.0-97.0) fL MCH 29.5 (27.0-32.0) pg MCHC 33.5 (32.0-37.0) g/dL Plt Count 206 (140-440) 10*3/uL MPV 10.8 (9.5-12.2) fL Immature Gran % (Auto) 0.4 % Neutrophils % 75.3 % Lymphocytes % 13.4 % Monocytes % 10.6 % Eosinophils % 0.0 % Basophils % 0.3 % Immature Gran # 0.04 (0.00-0.04) 10*3/uL Neutrophils # 7.42 (1.80-7.70) 10*3/uL Lymphocytes # 1.32 (0.90-5.00) 10*3/uL Monocytes # 1.05 H (0.20-1.00) 10*3/uL Eosinophils # 0.00 L (0.04-0.35) 10*3/uL Basophils # 0.03 (0.00-0.10) 10*3/uL PT 10.5 (10.0-12.5) sec INR 0.9 (<1.2) APTT 23.4 (22.0-30.0) sec Sodium 138 (137-145) mmol/L Potassium 4.2 (3.5-5.1) mmol/L Chloride 103 (98-107) mmol/L Carbon Dioxide 24 (22-30) mmol/L Anion Gap 11 mmol/L BUN 9 (7-17) mg/dL Creatinine 0.52 (0.52-1.04) mg/dL Est GFR (CKD-EPI)AfAm >90 (>60 ml/min/1.73 sqM) Est GFR (CKD-EPI)NonAf >90 (>60 ml/min/1.73 sqM) Glucose 96 (74-99) mg/dL Plasma Lactic Acid Panda (0.7-2.0) mmol/L Calcium 9.2 (8.4-10.2) mg/dL Magnesium 1.9 (1.6-2.3) mg/dL Total Bilirubin 0.6 (0.2-1.3) mg/dL AST 85 H (14-36) U/L ALT 46 H (4-34) U/L Alkaline Phosphatase 72 (38-126) U/L Troponin I (0.000-0.034) ng/mL NT-Pro-B Natriuret Pep 49 pg/mL Total Protein 6.5 (6.3-8.2) g/dL Albumin 3.8 (3.5-5.0) g/dL Urine Color Urine Appearance (Clear) Urine pH (5.0-8.0) Ur Specific [place] (1.001-1.035) Urine Protein (Negative) Urine Glucose (UA) (Negative) Urine Ketones (Negative) Urine Blood (Negative) Urine Nitrite (Negative) Urine Bilirubin (Negative) Urine Urobilinogen (<2.0) mg/dL Ur Leukocyte Esterase (Negative) Urine RBC (0-5) /hpf Urine WBC (0-5) /hpf Ur Squamous Epith Cells (0-4) /hpf Urine Bacteria (None) /hpf Urine Mucus (None) /hpf 03/05/25 03/05/25 03/05/25 Range/Units 15:31 15:31 15:45 WBC (4.50-10.00) 10*3/uL RBC (4.10-5.20) 10*6/uL Hgb (12.0-15.0) g/dL Hct (37.2-46.3) % MCV (80.0-97.0) fL MCH (27.0-32.0) pg MCHC (32.0-37.0) g/dL Plt Count (140-440) 10*3/uL MPV (9.5-12.2) fL Immature Gran % (Auto) % Neutrophils % % Lymphocytes % % Monocytes % % Eosinophils % % Basophils % % Immature Gran # (0.00-0.04) 10*3/uL Neutrophils # (1.80-7.70) 10*3/uL Lymphocytes # (0.90-5.00) 10*3/uL Monocytes # (0.20-1.00) 10*3/uL Eosinophils # (0.04-0.35) 10*3/uL Basophils # (0.00-0.10) 10*3/uL PT (10.0-12.5) sec INR (<1.2) APTT (22.0-30.0) sec Sodium (137-145) mmol/L Potassium (3.5-5.1) mmol/L Chloride (98-107) mmol/L Carbon Dioxide (22-30) mmol/L Anion Gap mmol/L BUN (7-17) mg/dL Creatinine (0.52-1.04) mg/dL Est GFR (CKD-EPI)AfAm (>60 ml/min/1.73 sqM) Est GFR (CKD-EPI)NonAf (>60 ml/min/1.73 sqM) Glucose (74-99) mg/dL Plasma Lactic Acid Panda 1.0 (0.7-2.0) mmol/L Calcium (8.4-10.2) mg/dL Magnesium (1.6-2.3) mg/dL Total Bilirubin (0.2-1.3) mg/dL AST (14-36) U/L ALT (4-34) U/L Alkaline Phosphatase (38-126) U/L Troponin I <0.012 (0.000-0.034) ng/mL NT-Pro-B Natriuret Pep pg/mL Total Protein (6.3-8.2) g/dL Albumin (3.5-5.0) g/dL Urine Color Light Yellow Urine Appearance Cloudy H (Clear) Urine pH 6.0 (5.0-8.0) Ur Specific [place] 1.013 (1.001-1.035) Urine Protein Negative (Negative) Urine Glucose (UA) Negative (Negative) Urine Ketones Trace H (Negative) Urine Blood Negative (Negative) Urine Nitrite Negative (Negative) Urine Bilirubin Negative (Negative) Urine Urobilinogen <2.0 (<2.0) mg/dL Ur Leukocyte Esterase Small H (Negative) Urine RBC <1 (0-5) /hpf Urine WBC 9 H (0-5) /hpf Ur Squamous Epith Cells 10 H (0-4) /hpf Urine Bacteria Many H (None) /hpf Urine Mucus Rare H (None) /hpf Disposition Clinical Impression: Dyspnea, Urinary tract infection Disposition: HOME SELF-CARE Prescriptions: Nitrofurantoin Monohyd/M-Cryst [Macrobid] 100 mg PO Q12HR #14 cap Is patient prescribed a controlled substance at d/c from ED?: No Referrals: Tyler Mayesr DO [Primary Care Provider] - 1-2 days Time of Disposition: 20:30
[2025-03-05 16:16] LABS: Basophils # (A) 0.03 10*3/uL (0.00-0.10); Basophils % (A) 0.3 %; HCT 34.6 % (37.2-46.3); HGB 11.6 g/dL (12.0-15.0); Lymphocytes # (A) 1.32 10*3/uL (0.90-5.00); Lymphocytes % (A) 13.4 %; MCH 29.5 pg (27.0-32.0); MCHC 33.5 g/dL (32.0-37.0); Mean Platelet Volume 10.8 fL (9.5-12.2); Monocytes # (A) 1.05 10*3/uL (0.20-1.00); Monocytes % (A) 10.6 %; Neutrophils # (A) 7.42 10*3/uL (1.80-7.70); Neutrophils % (A) 75.3 %; Platelet Count 206 10*3/uL (140-440); RBC 3.93 10*6/uL (4.10-5.20); RDW 12.7 % (11.5-14.5); WBC 9.86 10*3/uL (4.50-10.00)
[2025-03-05 16:28] LABS: INR 0.9 (<1.2); Partial Thromboplastin Time 23.4 sec (22.0-30.0); Prothrombin Time 10.5 sec (10.0-12.5)
--- NOTE | 2025-03-05 16:28 | XR ---
EXAMINATION TYPE: XR chest 2V DATE OF EXAM: 03/05/2025 4:24 PM COMPARISON: Chest radiographs from 08/15/2018 TECHNIQUE: XR chest 2V Frontal and lateral views of the chest. CLINICAL INDICATION:Female, 64 years old with history of difficulty breathing; FINDINGS: Lungs/Pleura: Trace left pleural effusion. No focal consolidation or pneumothorax. Pulmonary vascularity: Unremarkable. Heart/mediastinum: Cardiomediastinal silhouette is unremarkable. Musculoskeletal: Multiple level degenerative disc disease changes seen throughout the spine. Partial visualization of lumbar fusion hardware. IMPRESSION: Trace left pleural effusion. [facility], , 03/05/2025 4:26 PM
[2025-03-05 16:29] LABS: ALT 46 U/L (4-34); AST 85 U/L (14-36); African American GFR (CKD) >90 (>60 ml/min/1.73 sqM); Albumin 3.8 g/dL (3.5-5.0); Alkaline Phosphatase 72 U/L (38-126); Anion Gap 11 mmol/L; Blood Urea Nitrogen 9 mg/dL (7-17); Calcium 9.2 mg/dL (8.4-10.2); Carbon Dioxide 24 mmol/L (22-30); Chloride 103 mmol/L (98-107); Glucose 96 mg/dL (74-99); Magnesium 1.9 mg/dL (1.6-2.3); Non-African American GFR(CKD) >90 (>60 ml/min/1.73 sqM); Potassium 4.2 mmol/L (3.5-5.1); Sodium 138 mmol/L (137-145); Total Bilirubin 0.6 mg/dL (0.2-1.3); Total Protein 6.5 g/dL (6.3-8.2)
[2025-03-05 16:37] LABS: NT-Pro-B-Type Natriuretic Pept 49 pg/mL
[2025-03-05 16:46] LABS: Appearance,Urine Cloudy (Clear); Bacteria,Urine Many /hpf; Bilirubin,Urine Negative (Negative); Blood,Urine Negative (Negative); Color,Urine Light Yellow; Glucose,Urine (UA) Negative (Negative); Ketones,Urine Trace (Negative); Leukocyte Esterase,Urine Small (Negative); Mucus,Urine Rare /hpf; Nitrite,Urine Negative (Negative); Protein,Urine Negative (Negative); RBC,Urine <1 /hpf (0-5); Specific Gravity,Urine 1.013 (1.001-1.035); Squamous Epithelial Cell,Urine 10 /hpf (0-4); Urobilinogen,Urine <2.0 mg/dL (<2.0); WBC,Urine 9 /hpf (0-5)
[2025-03-05] MEDS: KETOROLAC 15 MG/ML 1 ML VIAL IVP STA (17:17)
--- NOTE | 2025-03-05 18:48 | XR ---
EXAMINATION TYPE: XR pelvis AP view DATE OF EXAM: 03/05/2025 6:40 PM COMPARISON: Left hip prosthesis image 01/17/2019 CLINICAL INDICATION: Female, 64 years old with history of Fall, pain TECHNIQUE: AP view(s) obtained. FINDINGS: Sacroiliac joints and symphysis pubis appear normal. Right femoral head articulates with the acetabul um. No acute osseous abnormality evident. There is a left hip prosthesis. In comparison with the prior study the femoral neck appears foreshort ened. Consider dislocation or fracture of the prosthesis. Consider additional imaging of the left hip prosthesis. The femoral prosthesis head articulates with the acetabulum as visualized. IMPRESSION: 1. Change in the appearance of the femoral prosthesis. Correlate for fracture or component dislocati on X-Ray [facility], Workstation: [facility], 03/05/2025 6:46 PM
[2025-03-05] MEDS: HYDROmorphone 0.5 MG/0.5 ML SYRINGE IVP STA (19:44)
--- NOTE | 2025-03-05 20:08 | XR ---
EXAMINATION TYPE: XR Hip Complete LT DATE OF EXAM: 03/05/2025 7:59 PM COMPARISON: Pelvis same date CLINICAL INDICATION: Female, 64 years old with history of Hip pain, pain, abnormal AP pelvis TECHNIQUE: 2 view(s) obtained. FINDINGS: Left femoral prosthesis is present. Femoral component articulates with the acetabulum. The femoral co mponent articulating with the femoral head component has a normal appearance on this examination. No fracture or dislocation identified. IMPRESSION: 1. No acute abnormality of the left femoral prosthesis identified [facility], Workstation: [facility], 03/05/2025 8:06 PM
[2025-03-05] MEDS: ACETAMINOPHEN TAB 500 MG TAB PO STA (21:06)
[2025-03-05] MEDS: cefTRIAXone IN SWFI 1,000 MG/10 ML SYRINGE IVP STA ×2 (21:09→21:11)
[2025-03-05] MEDS: LORazepam 2 MG/ML INJ IV STA (21:51)
[2025-03-05 23:24] VITALS: BP 110/73; PULSE 89; RESP 18; TEMP 98.2
== END 2025-03-05 23:19 | disposition home or self-care (01) ==
LOC: EC 15:10
DX: N39.0 Urinary tract infection, site not specified (principal); R06.00 Dyspnea, unspecified; F17.200 Nicotine dependence, unspecified, uncomplicated; Z88.8 Allergy status to other drugs, medicaments and biological substances; Z91.041 Radiographic dye allergy status
CPT/HCPCS: 36415; 93005; 83880; 80053; 83605; 83735; 84484; 85025; 85610; 85730; 81001; 87040; 87086; 72170; 73502; 71046; 99285; 96374; 96375 ×3; J2060; J0696; J1885; J1171

== ENCOUNTER → 2025-05-07 | Outpatient (CLI) | payer OTHER | END | disposition home or self-care (01) | LOC: RADMRIMAIN 12:57 | PROVIDERS: ATTEND Orthopaedic Surgery | DX: Z53.9 Procedure and treatment not carried out, unspecified reason (principal) ==